=== PATIENT | female | born 1970 | race African-American/Black ===

== ENCOUNTER 2020-01-31 08:04 | Emergency (ER) | payer BC, SELFPAY ==
[2020-01-31 08:23] VITALS: BP 129/85; PULSE 80; RESP 16; TEMP 37.3; O2SAT 99
--- NOTE | 2020-01-31 08:33 | ED.GENADULT ---
HPI - General Adult General Chief complaint: Eye Problems Stated complaint: bilateral eye swollen Source: patient Mode of arrival: ambulatory Limitations: no limitations History of Present Illness HPI narrative: Patient presents for evaluation and treatment of irritation surrounding both eyes with associated pruritus since yesterday. She indicates on Thursday of this week she had her eyebrows tented. She has had this procedure done in the past without any adverse response. She states she woke from sleep this morning with swelling around both eyes. She denies any visual disturbance. She tried taking Benadryl which seemed to help with the swelling and itching. She is not diabetic. She denies any fever, chills, nausea, vomiting. No additional complaints or concerns. Related Data Home Medications Medication Instructions Recorded Confirmed albuterol sulfate 1 inh INHALATION QID PRN 01/31/20 01/31/20 cyanocobalamin (vitamin B-12) 1,000 mcg PO DAILY 01/31/20 01/31/20 [Vitamin B-12] levothyroxine [Synthroid] 137 mcg PO DAILY 01/31/20 01/31/20 methylphenidate HCl 5 mg PO DAILY 01/31/20 01/31/20 mometasone [Asmanex HFA] 1 puff INHALATION HS 01/31/20 01/31/20 montelukast [Singulair] 10 mg PO DAILY 01/31/20 01/31/20 sertraline [Zoloft] 150 mg PO DAILY 01/31/20 01/31/20 Allergies Allergy/AdvReac Type Severity Reaction Status Date / Time Penicillins Allergy Rash Verified 01/31/20 08:27 Review of Systems Review of Systems: Narrative: CONSTITUTIONAL: Denies fever, chills, or sweats. EYES: Denies visual changes, redness, or discharge. Reports irritation around both eyes ENT: Denies rhinorrhea, congestion, sore throat, or otalgia. CARDIOVASCULAR: Denies chest pain, palpitations. RESPIRATORY: Denies cough or dyspnea. GASTROINTESTINAL: Denies abdominal pain, nausea, vomiting, or diarrhea. GENITOURINARY: Denies dysuria or hematuria. SKIN: Denies rash. Reports pruritus and swelling around both eyes MUSCULOSKELETAL: Denies back pain, joint pain, or myalgia. NEUROLOGIC: Denies headache, numbness, dizziness, or weakness. PSYCHIATRIC: Denies anxiety or depression. [facility] Past Medical History Medical History (Updated 01/31/20 @ 08:39 by Bonifacio Lo [facility], ) Asthma Cholecystectomy planned Depression Environmental allergies Hypothyroidism Lipoma Obesity Surgical History Surgical History History of hysterectomy History of tubal ligation Family History Family History Father Cancer Mother End stage renal disease Social History Social History Smoking status: Never smoker Alcohol intake: never Substance use: never Living arrangements: with family Gender identity (if verbalized by the patient): Female Sexual Orientation (if Verbalized by the Patient): Straight or Heterosexual Exam Narrative: Exam Narrative: GENERAL: Well-appearing, well-nourished, and in no acute distress. HEAD: Normocephalic, atraumatic. EYES: PERRLA and EOMI. ENT: Nares clear, no rhinorrhea or epistaxis. Mucous membranes moist. Oropharynx without tonsillar hypertrophy exudate or other lesions. Bilateral TMs pearly acosta nonbulging NECK: Supple. No adenopathy or masses. No carotid bruits or JVD CHEST: Clear to auscultation. No respiratory distress. No wheezes rales or rhonchi HEART: Regular rate and rhythm. No murmur heard. Normal peripheral pulses. ABDOMEN: Soft, nontender, nondistended, normal active bowel sounds. EXTREMITIES: Normal range of motion. No edema. SKIN: Warm, dry, no rash. Trace swelling noted to bilateral upper eyelids NEURO: No focal deficits. Alert and oriented x3. PSYCH: Normal mood and affect. Course Course Emergency Course: This is a 49-year-old female that presents with 1 day history of pruritus and irritation surrounding both eye
== END 2020-01-31 08:47 | disposition home or self-care (01) ==
PROVIDERS: Emergency Provider Nurse Practitioner; PCP Nurse Practitioner Family
DX: L29.9 Pruritus, unspecified (principal); H02.846 Edema of left eye, unspecified eyelid; H02.843 Edema of right eye, unspecified eyelid; T78.40XA Allergy, unspecified, initial encounter; J45.909 Unspecified asthma, uncomplicated; F32.9 Major depressive disorder, single episode, unspecified; E03.9 Hypothyroidism, unspecified; E66.9 Obesity, unspecified; Z68.42 Body mass index [BMI] 45.0-49.9, adult
CPT/HCPCS: 99203; G0463

== ENCOUNTER 2020-10-31 15:12 | Outpatient (RCR) | payer OTHER, MEDICAID, SELFPAY ==
--- NOTE | 2020-10-31 16:46 | PTOPEVAL ---
PHYSICAL THERAPY EVALUATION AND PLAN OF CARE Thank you for referring Kelli Spencer to [facility].? The patient is scheduled to be seen for therapy? 1x/week for 4-6 weeks. Please review, sign, date and return this plan of care WILEY. I agree with and certify that the following plan of care is medically necessary. Referring Physician Date Referring Provider: Fracisco Avila Evaluation Diagnosis left knee pain Onset June 2020 Subjective Information reports left knee pain; states Query Text:As Reported By Patient/ that it feels like her left Family knee cap is moving out of place and like it gets stuck. Sometimes the knee gives out. States that sometimes when she stands up from sitting a certain way she stands up and she has to unlock the knee. Self Report Pain Assessment Left Knee(s) Reported Pain Level 2 Pain Frequency Acute,Intermittent Other Pain Description popping, locking Pain Score Pain Score 2: Self Report Interventions Used Interventions Used By Clinicians Exercise Lower Extremity Range of Motion Knee Range of Motion Left Reason Not Measured WNL/Left Lower Extremity Muscle Strength Testing Hip Strength Left Hip Flexion Strength 4+ Good + Hip Extension Strength 3+ Fair + Hip Abduction Strength 3+ Fair + Knee Strength Left Knee Flexion Strength 3+ Fair + Knee Extension Strength 4 Good Muscle Length Testing Muscle Length Testing Piriformis w/Hip Flexion >90 Degrees (L) Mild Tightness,(L) Severe Tightness Left Hamstring Length -40 Query Text:(90 - 90 Position) Right Hamstring Length -40 Query Text:(90 - 90 Position) Right Prone Knee Flexor Muscle Length ( 95 degrees) Left Prone Knee Flexor Muscle Length ( 80 degrees) Palpation Assessment Palpation Palpation significant tenderness and tightness noted to left quadriceps - trigger points noted. Special Tests-Lower Extremity Knee Special Tests Miriam's Negative Left Anterior Drawer Negative Left Valgus Stress Test Knee at 0 Degrees Negative Left Varus Stress Test Knee at 0 Degrees Negative Left Laury's Negative Left General Exercise General Exercises Side Left Exercise Location LE Exercise Type Active,Stretching Exercise Description HEP: Query Text:Record Sets, Reps,
--- NOTE | 2020-11-14 12:51 | PCPTNOTE ---
Patient did not show up for scheduled appointment this date.
--- NOTE | 2020-11-21 08:10 | PCPTNOTE ---
Patient did not show up for scheduled appointment this date.
--- NOTE | 2020-11-28 09:11 | PCPTNOTE ---
PHYSICAL THERAPY DISCHARGE NOTE Patient:Kelli Spencer Date of :1970 Patient has not returned for any further treatments since 10/31/2020, therefore will be discharged at this time. Patient?s initial visit was on 10/31/2020 and had a total of 1 [facility]. Please review, sign, date and return this discharge summary WILEY. I have been updated about the patient's current status and I agree with discharge from the above service at this time. Referring Physician Date
--- NOTE | 2020-11-28 11:44 | PCPTNOTE ---
Patient did not show up for scheduled appointment this date; called patient who answered phone who stated that at this time she is just unable to attend therapy due to personal issues understands she will need a new order for MD to return to therapy.
== END 2020-11-28 16:39 | disposition home or self-care (01) ==
LOC: ANHPT 15:12
PROVIDERS: PCP Nurse Practitioner Family
DX: M25.562 Pain in left knee (principal); M17.12 Unilateral primary osteoarthritis, left knee
CPT/HCPCS: 97110; 97161

== ENCOUNTER 2021-05-26 08:06 | Emergency (ER) | payer OTHER, MEDICAID, SELFPAY ==
[2021-05-26 08:15] VITALS: BP 148/87; PULSE 89; RESP 16; TEMP 36.7; O2SAT 99
[2021-05-26] MEDS: BALANCED SALT SOLN OPHTH IRRIG 30 ML BTL LEFT EYE (08:20)
[2021-05-26] MEDS: FLUORESCEIN SOD 1 MG/STRIP EACH EYE (08:20)
[2021-05-26] MEDS: TETRACAINE HCL 0.5% OPHTH SOLN 4 ML BTL 1 DROP EACH EYE (08:20)
--- NOTE | 2021-05-26 08:43 | ED.GENADULT ---
HPI - General Adult General Chief complaint: Eye Problems Stated complaint: right eye pain Source: patient Mode of arrival: ambulatory Limitations: no limitations History of Present Illness HPI narrative: Patient presents for evaluation of left eye irritation for the last 2 days. The day prior to his symptom onset she had some artificial lashes placed. She initially felt like there was a hair in (her) eye . She reports tearing, redness and blurred vision. She denies diplopia, halos, black spots and other visual disturbance. She removed the left lashes but kept the right lashes on. She does wear glasses. No contact lens use. She tried two over the counter medications without considerable improvement in her symptoms thereafter. No additional complaints or concerns. Related Data Home Medications Medication Instructions Recorded Confirmed albuterol sulfate 1 inh INHALATION QID PRN 01/31/20 05/26/21 cyanocobalamin (vitamin B-12) 1,000 mcg PO DAILY 01/31/20 05/26/21 [Vitamin B-12] levothyroxine [Synthroid] 137 mcg PO DAILY 01/31/20 05/26/21 methylphenidate HCl 5 mg PO DAILY 01/31/20 05/26/21 mometasone [Asmanex HFA] 1 puff INHALATION HS 01/31/20 05/26/21 montelukast [Singulair] 10 mg PO DAILY 01/31/20 05/26/21 sertraline [Zoloft] 150 mg PO DAILY 01/31/20 05/26/21 Allergies Allergy/AdvReac Type Severity Reaction Status Date / Time Penicillins Allergy Rash Verified 05/26/21 08:21 Review of Systems Review of Systems: CONSTITUTIONAL: Denies fever, chills, or sweats. EYES: Reports left eye irritation, redness, tearing and blurred vision. Denies diplopia, halos, black spots ENT: Denies rhinorrhea, congestion, sore throat, or otalgia. CARDIOVASCULAR: Denies chest pain, palpitations, or edema. RESPIRATORY: Denies cough or dyspnea. GASTROINTESTINAL: Denies abdominal pain, nausea, vomiting, or diarrhea. GENITOURINARY: Denies dysuria or hematuria. SKIN: Denies rash or itching. MUSCULOSKELETAL: Denies back pain, joint pain, or myalgia. NEUROLOGIC: Denies headache, numbness, dizziness, or weakness. PSYCHIATRIC: Denies anxiety or depression. PMFSH Past Medical History Medical History Asthma Cholecystectomy planned Depression Environmental allergies Hypothyroidism Lipoma Obesity Surgical History Surgical History History of hysterectomy History of tubal ligation Family History Family History Father Cancer Mother End stage renal disease Social History Social History Smoking status: Never smoker Alcohol intake: never Substance use: never Gender identity (if verbalized by the patient): Female Sexual Orientation (if Verbalized by the Patient): Straight or Heterosexual Exam Narrative: GENERAL: Well-appearing, well-nourished, and in no acute distress. HEAD: Normocephalic, atraumatic. EYES: PERRLA and EOMI. left conjunctival injection with associated tearing. There is no dye uptake noted with fluorescein stain and wood's lamp evaluation ENT: Nares clear, no rhinorrhea or epistaxis. Mucous membranes moist. Oropharynx without tonsillar hypertrophy exudate or other lesions. Bilateral TMs pearly acosta nonbulging NECK: Supple. No adenopathy or masses. No carotid bruits or JVD CHEST: Clear to auscultation. No respiratory distress. No wheezes rales or rhonchi HEART: Regular rate and rhythm. No murmur heard. Normal peripheral pulses. ABDOMEN: Soft, nontender, nondistended, normal active bowel sounds. EXTREMITIES: Normal range of motion. No edema. SKIN: Warm, dry, no rash. NEURO: No focal deficits. Alert and oriented x3. PSYCH: Normal mood and affect. Course Course Emergency Course: This is a 50-year-old female who presented with complaints of left eye irritation. Initia
== END 2021-05-26 08:26 | disposition home or self-care (01) ==
PROVIDERS: Emergency Provider Nurse Practitioner
DX: H10.32 Unspecified acute conjunctivitis, left eye (principal); J45.909 Unspecified asthma, uncomplicated; E03.9 Hypothyroidism, unspecified; E66.9 Obesity, unspecified; Z68.42 Body mass index [BMI] 45.0-49.9, adult; F32.A Depression, unspecified
CPT/HCPCS: 99213; A9270; G0463

== ENCOUNTER 2022-10-04 15:12 | Emergency (ER) | payer OTHER, MEDICAID, SELFPAY ==
--- NOTE | 2022-10-04 15:20 | ED.EAR ---
HPI - Ear Problem General Chief complaint: Upper Respiratory Infection Stated complaint: bilateral ear pain,sorethroat,dizziness Time Seen by Provider: 10/04/22 15:20 Source: patient, RN notes reviewed and old records reviewed Mode of arrival: ambulatory Limitations: no limitations History of Present Illness HPI Narrative: 52-year-old female presents to [facility] with complaints of bilateral ear pain, sore intermittent dizziness. Her symptoms started 10 days ago. Has tried [id number] products. Related Data Home Medications Medication Instructions Recorded Confirmed albuterol sulfate 90 mcg/actuation 1 inh inhalation QID PRN Wheezing 01/31/20 10/04/22 aerosol inhaler cyanocobalamin (vitamin B-12) 1,000 mcg PO DAILY 01/31/20 10/04/22 1,000 mcg tablet (Vitamin B-12) amlodipine 10 mg tablet 10 mg PO DAILY 10/04/22 10/04/22 bupropion HCl 300 mg 24 hr tablet, 300 mg PO DAILY 10/04/22 10/04/22 extended release duloxetine 30 mg capsule,delayed 30 mg PO DAILY 10/04/22 10/04/22 release methylphenidate HCl 36 mg 36 mg PO DAILY 10/04/22 10/04/22 tablet,extended release 24 hr Allergies Allergy/AdvReac Type Severity Reaction Status Date / Time Penicillins Allergy Rash Verified 10/04/22 15:36 Review of Systems Review of Systems: All systems reviewed & are unremarkable except as noted in HPI and below Constitutional: Constitutional: Reports no additional constitutional complaints Eyes: Eyes: Reports no additional eye complaints ENT: Reports as per HPI, Reports vertigo, Reports dizziness, Reports otalgia and Reports sore throat Cardiovascular: Cardiovascular: Reports no additional cardiovascular complaints, Denies chest pain and Denies dyspnea Respiratory: Respiratory: Reports no additional respiratory complaints, Denies chest congestion, Denies cough and Denies dyspnea Gastrointestinal: Gastrointestinal: Reports no additional gastrointestinal complaints, Denies abdominal pain, Denies nausea and Denies vomiting Musculoskeletal: Musculoskeletal: Reports no additional musculoskeletal complaints Integumentary/Breasts: Skin/Breast: Reports system reviewed and no additional complaints, except as docu Neurologic: Reports system reviewed and no additional complaints, except as documented Psychiatric: Psychiatric: Reports no additional psychiatric complaints Allergic/Immunologic: Allergic/Immunologic: Reports no additional allergic/immunologic complaints PMFSH Past Medical History Medical History Asthma Cholecystectomy planned Depression Environmental allergies Hypothyroidism Lipoma Obesity Surgical History Surgical History History of hysterectomy History of tubal ligation Family History Family History Father Cancer Mother End stage renal disease Social History Social History Smoking status: Never smoker Alcohol intake: never Substance use: never Living arrangements: with family Gender identity (if verbalized by the patient): Female Sexual Orientation (if Verbalized by the Patient): Straight or Heterosexual Comments At the time of my signature, I reviewed and agree with the nursing past medical, surgical, social, and family history. There is no relevant family history pertinent to the patient complaint. Exam Const: General: cooperative, healthy appearing, comfortable, no acute distress, well developed, alert and well nourished Nutritional Appearance: well nourished Orientation/consciousness: patient oriented x3 Limitations: no limitations HENMT: Head: normal to inspection Ears: hearing grossly normal bilaterally, external ears normal, TM normal on the left, EAC's normal, mastoids normal, no periauricular adenopathy and TM abnormal bulging on the right, er
[2022-10-04 15:26] VITALS: BP 147/89; PULSE 89; RESP 18; TEMP 37.1; O2SAT 99
== END 2022-10-04 15:39 | disposition home or self-care (01) ==
PROVIDERS: Emergency Provider Nurse Practitioner; PCP Nurse Practitioner Family
DX: H66.91 Otitis media, unspecified, right ear (principal); H65.03 Acute serous otitis media, bilateral; J45.909 Unspecified asthma, uncomplicated; E03.9 Hypothyroidism, unspecified; E66.9 Obesity, unspecified; Z68.42 Body mass index [BMI] 45.0-49.9, adult; F32.A Depression, unspecified
CPT/HCPCS: 99213; G0463

== ENCOUNTER 2023-05-08 08:21 | Emergency (ER) | payer OTHER, MEDICAID, SELFPAY ==
[2023-05-08 08:35] VITALS: BP 125/84; PULSE 83; RESP 18; TEMP 36.4; O2SAT 99
--- NOTE | 2023-05-08 08:38 | ED.URI ---
HPI - URI/Sore Throat General Chief Complaint: Upper Respiratory Infection Stated Complaint: Cough,Congestion,Headache Time Seen by Provider: 05/08/23 08:38 Source: patient Mode of arrival: ambulatory Limitations: no limitations History of Present Illness HPI Narrative: Patient is a 52-year-old female who presents with congestion, sinus pressure, headache, cough for 4 days. Patient has tried [id number] cold and flu medication with no relief. Denies any fever, chills, nausea, vomiting, diarrhea, sore throat. History of asthma Related Data Home Medications Medication Instructions Recorded Confirmed cyanocobalamin (vitamin B-12) 1,000 mcg PO DAILY 01/31/20 05/08/23 1,000 mcg tablet (Vitamin B-12) amlodipine 10 mg tablet 10 mg PO DAILY 10/04/22 05/08/23 bupropion HCl 300 mg 24 hr tablet, 300 mg PO DAILY 10/04/22 05/08/23 extended release duloxetine 30 mg capsule,delayed 30 mg PO DAILY 10/04/22 05/08/23 release methylphenidate HCl 36 mg 36 mg PO DAILY 10/04/22 05/08/23 tablet,extended release 24 hr albuterol sulfate 90 mcg/actuation 2 puff inhalation QID PRN 05/08/23 05/08/23 aerosol inhaler Shortness Of Breath Or Wheezing levothyroxine 150 mcg tablet 150 mcg PO DAILY 05/08/23 05/08/23 Allergies Allergy/AdvReac Type Severity Reaction Status Date / Time Penicillins AdvReac Mild Rash Verified 05/08/23 08:31 Review of Systems Review of Systems: All systems reviewed & are unremarkable except as noted in HPI and below Constitutional: Constitutional: Denies body ache(s), Denies chills, Denies fatigue, Denies fever(s), Reports headache(s), Denies malaise and Denies weakness Eyes: Eyes: Denies blurry vision, Denies itchy eyes and Denies loss of vision ENT: Denies otalgia, Denies headache(s), Reports nasal congestion, Denies sinus pain, Reports sinus pressure and Denies sore throat Cardiovascular: Cardiovascular: Denies chest pain, Denies irregular heart rhythm and Denies dyspnea Respiratory: Respiratory: Reports cough and Denies dyspnea Gastrointestinal: Gastrointestinal: Denies abdominal pain, Denies diarrhea, Denies nausea and Denies vomiting Musculoskeletal: Musculoskeletal: Denies back pain, Denies myalgias and Denies arthralgias Integumentary/Breasts: Skin/Breast: Denies pruritus and Denies rash Neurologic: Reports headache(s), Denies loss of vision and Denies weakness Psychiatric: Psychiatric: Reports no additional psychiatric complaints Endocrine: Endocrine: Denies fatigue Allergic/Immunologic: Allergic/Immunologic: Denies itchy eyes PMFSH Past Medical History Medical History Asthma Cholecystectomy planned Depression Environmental allergies Hypothyroidism Lipoma Obesity Surgical History Surgical History History of hysterectomy History of tubal ligation Family History Family History Father Cancer Mother End stage renal disease Social History Social History Smoking status: Never smoker Alcohol intake: never Substance use: never Living arrangements: with family Gender identity (if verbalized by the patient): Female Sexual Orientation (if Verbalized by the Patient): Straight or Heterosexual Comments At time of signature, agree with nursing past medical, surgical, social and family history. There is no relevant family history pertinent to the presenting complaint. Exam Const: General: cooperative, healthy appearing, comfortable, no acute distress and well nourished Nutritional Appearance: well nourished Orientation/consciousness: patient oriented x3 Limitations: no limitations HENMT: Head: normal to inspection, normocephalic and atraumatic Ears: hearing grossly normal bilaterally, external ears normal, TM's normal bilaterally, EAC's normal a
== END 2023-05-08 08:52 | disposition home or self-care (01) ==
PROVIDERS: Emergency Provider Nurse Practitioner Family; PCP Nurse Practitioner Family
DX: J32.9 Chronic sinusitis, unspecified (principal); Z20.822 Contact with and (suspected) exposure to COVID-19; J45.909 Unspecified asthma, uncomplicated; E03.9 Hypothyroidism, unspecified; E66.9 Obesity, unspecified; Z68.42 Body mass index [BMI] 45.0-49.9, adult; F32.A Depression, unspecified
CPT/HCPCS: 87081; 87426; 87804; 87880; 99213; G0463

== ENCOUNTER 2023-11-09 17:11 | Emergency (ER) | payer OTHER, SELFPAY ==
[2023-11-09 18:27] VITALS: BP 151/99; PULSE 99; RESP 18; TEMP 37; O2SAT 100
--- NOTE | 2023-11-09 18:33 | ED.URI ---
HPI - URI/Sore Throat General Chief Complaint: Upper Respiratory Infection Stated Complaint: sinus infection and headache Time Seen by Provider: 11/09/23 18:33 Source: patient Mode of arrival: ambulatory Limitations: no limitations History of Present Illness HPI Narrative: 53-year-old female presents with complaint of nasal congestion, sinus pressure, fatigue for 2 weeks. Taking an [id number] sinus medication with no relief of symptoms. Patient had bacterial sinusitis at end of September, was prescribed doxycycline but did not finish prescription. Afebrile. All systems reviewed and negative except as noted above. Related Data Home Medications Medication Instructions Recorded Confirmed amlodipine 10 mg tablet 10 mg PO DAILY 10/04/22 11/09/23 bupropion HCl 300 mg 24 hr tablet, 300 mg PO DAILY 10/04/22 11/09/23 extended release duloxetine 30 mg capsule,delayed 30 mg PO DAILY 10/04/22 11/09/23 release methylphenidate HCl 36 mg 36 mg PO DAILY 10/04/22 11/09/23 tablet,extended release 24 hr levothyroxine 150 mcg tablet 150 mcg PO DAILY 05/08/23 11/09/23 duloxetine 60 mg capsule,delayed 60 mg PO DAILY 11/09/23 11/09/23 release Allergies Allergy/AdvReac Type Severity Reaction Status Date / Time Penicillins AdvReac Mild Rash Verified 11/09/23 18:24 Review of Systems Review of Systems: CONSTITUTIONAL: Denies fever, chills, or sweats. reports fatigue. EYES: Denies visual changes, redness, or discharge. ENT: Reports rhinorrhea, congestion, sinus pressure. Denies sore throat, or otalgia. CARDIOVASCULAR: Denies chest pain, palpitations, or edema. RESPIRATORY: Denies cough or dyspnea. GASTROINTESTINAL: Denies abdominal pain, nausea, vomiting, or diarrhea. GENITOURINARY: Denies dysuria or hematuria. SKIN: Denies rash or itching. MUSCULOSKELETAL: Denies back pain, joint pain, or myalgia. NEUROLOGIC: Denies headache, numbness, or weakness. PSYCHIATRIC: Denies anxiety or depression. All other systems reviewed are negative, except as documented in HPI. [facility] Past Medical History Medical History Asthma Cholecystectomy planned Depression Environmental allergies Hypothyroidism Lipoma Obesity Surgical History Surgical History History of hysterectomy History of tubal ligation Family History Family History Father Cancer Mother End stage renal disease Social History Social History Smoking status: Never smoker Alcohol intake: never Substance use: never Living arrangements: with family Gender identity (if verbalized by the patient): Female Sexual Orientation (if Verbalized by the Patient): Straight or Heterosexual Comments At time of signature, agree with nursing past medical, surgical, social and family history. There is no relevant family history pertinent to the presenting complaint. Exam Narrative: GENERAL: This is a well-nourished, well-developed patient, in no apparent distress. HEAD: normocephalic, atraumatic. EYES: PERRL. Sclera clear/white. Vision is grossly intact. EARS: External ears normal, auditory canals clear and without drainage, TMs normal without perforation. Hearing grossly intact. NOSE: External nose normal with Moderate congestion, erythema and swelling to bilateral nares with clear nasal drainage. Bilateral maxillary sinus tenderness on exam. THROAT: Mucous membranes moist, Erythematous postnasal drainage. No significant swelling or exudates. NECK: Neck supple, non-tender without lymphadenopathy, masses or thyromegaly. CARDIOVASCULAR: Regular rate and rhythm without murmurs, gallops, or rubs. RESPIRATORY: Clear to auscultation. Breath sounds equal bilaterally. No wheezes, rales, or rhonchi. GASTROINTESTINAL: Abdomen soft, non-tender, non
== END 2023-11-09 18:40 | disposition home or self-care (01) ==
PROVIDERS: Emergency Provider Nurse Practitioner Family; PCP Nurse Practitioner Family
DX: J01.90 Acute sinusitis, unspecified (principal); J45.909 Unspecified asthma, uncomplicated; E03.9 Hypothyroidism, unspecified; E66.9 Obesity, unspecified; Z68.42 Body mass index [BMI] 45.0-49.9, adult; F32.9 Major depressive disorder, single episode, unspecified
CPT/HCPCS: 99213; G0463

== ENCOUNTER 2024-07-31 18:59 | Emergency (ER) | payer OTHER, SELFPAY ==
--- OUTSIDE RECORDS SUMMARY | 2024-07-31 19:01 | XMS_ITS | Clinical Summary ---
Author Organization [facility] [place] [address] [place] [address] Care Team Providers Care Quality Assurance Monitor Name Role Phone Unavailable Primary Care Provider Unavailabl e Social History Tobacco Use Types Packs/Day Years Used Date Smoking Tobacco: Never Assessed Comments Unknown Sex and Gender Information Value Date Recorded Sex Assigned at Not on file Legal Sex Female 12:14 AM PST Gender Identity Not on file Sexual Orientation Not on file Plan of Treatment Not on file
--- OUTSIDE RECORDS SUMMARY | 2024-07-31 19:01 | XMS_ITS | Encounter Summary ---
Author Organization [facility] Address [address] [place] [address] Care Team Providers Care Pst Supervisor Name Role Phone Unavailable Primary Care Provider Unavailabl e Prior Encounters Date Type Department Care Team Description 04/04/2019 Converted CPS Chart Documents [facility] [address] [place] [address] <No scans attached> 04/04/2019 Converted 13x Documents [facility] [address] [place] [address] <No scans attached> Plan of Treatment Not on file Procedures Procedure Name Priority Date/Time Associated Diagnosis Comments MISSED APPOINTMENT Routine 08/14/2016 2: 00 AM CDT 29 EXTRACTION, ERUPTED TOOTH OR EXPOSED ROOT (ELEVATION AND/OR FORCEPS REMOVAL) Routine 03/27/2016 2:00 AM CALL CENTER REPRESENTATIVE 29 LIMITED ORAL EVALUATION - PROBLEM FOCUSED Routine 03/27/2016 2:00 AM CALL CENTER REPRESENTATIVE ADDITIONAL X-RAY Routine 03/27/2016 2:00 AM CALL CENTER REPRESENTATIVE SINGLE X-RAY Routine 03/27/2016 2:00 AM CALL CENTER REPRESENTATIVE 16 REMOVAL OF RESIDUAL TOOTH ROOTS (CUTTING PROCEDURE) Routine 01/31/2016 2:00 AM CALL CENTER REPRESENTATIVE 1 REMOVAL OF RESIDUAL TOOTH ROOTS (CUTTING PROCEDURE) Routine 01/31/2016 2:00 AM CALL CENTER REPRESENTATIVE COMPREHENSIVE ORAL EVALUATION - NEW OR ESTABLISHED PATIENT Routine 01/31/2016 2:00 AM CALL CENTER REPRESENTATIVE ORAL HYGIENE INSTRUCTIONS Routine 2015 2:00 AM CALL CENTER REPRESENTATIVE TOPICAL APPLICATION OF FLUORIDE VARNISH Routine 01/31/2016 2:00 AM CALL CENTER REPRESENTATIVE PROPHYLAXIS - ADULT Routine 01/31/2016 2 :00 AM CALL CENTER REPRESENTATIVE PANORAMIC RADIOGRAPHIC IMAGE Routine 01/31/2016 2:00 AM CALL CENTER REPRESENTATIVE INTRAORAL - COMPREHENSIVE SERIES OF RADIOGRAPHIC IMAGES Routine 01/31/2016 2:00 AM CALL CENTER REPRESENTATIVE INTRAORAL PHOTO Routine 01/31/2016 2:00 AM CALL CENTER REPRESENTATIVE INTRAORAL PHOTO Routine 01/31/2016 2:00 AM CALL CENTER REPRESENTATIVE INTRAORAL PHOTO Routine 01/31/2016 2:00 AM CALL CENTER REPRESENTATIVE INTRAORAL PHOTO Routine 01/31/2016 2:00 AM CALL CENTER REPRESENTATIVE Visit Diagnoses Not on file
--- OUTSIDE RECORDS SUMMARY | 2024-07-31 19:01 | XMS_ITS | Encounter Summary ---
Author Organization [facility] Health Address [address] [place] [address] Care Team Providers Care Surfacing Technician Name Role Phone Ginna Auguste MD Primary Care Provider [phone] Dana Urena RN Unavailable [phone] Arpita Benjamin RN Unavailable [phone] Carlos Gutierrez MD Unavailable [phone] Chelsie Arellano MD Primary Care Provider [phone] Encounter Details Date Type Department Care Team (Late st Contact Info) Description 01/29/2012 [facility] Outpatient Visit EXTERNAL NON-[facility] DEPT Social History Tobacco Use Types Packs/Day Years Used Date Smoking Tobacco: Never Alcohol Use Standard Drinks/Week Comments Yes 0 (1 standard drink = 0.6 oz pur e alcohol) socially Comments No Sex and Gender Information Value Date Recorded Sex Assigned at Not on file 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 Gender Identity Not on file Sexual Orientation Not on file documented as of this encounter Plan of Treatment Not on file documented as of this encounter Visit Diagnoses Not on filedocumented in this encounter Care Teams Surfacing Technician Relationship Specialty Start Date End Date Ginna Auguste MD PCP - General Family Medicine 09/05/11 03/21/19 Chelsie Arellano MD [facility] [facility] [address] [place] [address] PCP - General 03/22/19 Dana Urena RN Rock CutterStorm Door Maker Medicine 06/24/12 10/20/12 Arpita Benjamin RN [address] [place] [address] Rock Cutter 10/21/12 04/25/13 Carlos Gutierrez MD [address] [place] [address] Orthopedic Surgery 03/20/15 documented as of this encounter
--- OUTSIDE RECORDS SUMMARY | 2024-07-31 19:01 | XMS_ITS | Encounter Summary ---
Author Organization [facility] Health Address [address] [place] [address] Care Team Providers Care Stock Handler Floorperson Name Role Phone Ginna Auguste MD Primary Care Provider [phone] Dana Urena RN Unavailable [phone] Arpita Benjamin RN Unavailable [phone] Carlos Gutierrez MD Unavailable [phone] Chelsie Arellano MD Primary Care Provider [phone] Encounter Details Date Type Department Care Team (Late st Contact Info) Description 10/28/2011 [facility] Outpatient Visit EXTERNAL [facility] DEPT Social History Tobacco Use Types Packs/Day Years Used Date Smoking Tobacco: Never Alcohol Use Standard Drinks/Week Comments Yes 0 (1 standard drink = 0.6 oz pur e alcohol) socially Comments No Sex and Gender Information Value Date Recorded Sex Assigned at Not on file 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 Gender Identity Not on file Sexual Orientation Not on file documented as of this encounter Plan of Treatment Not on file documented as of this encounter Visit Diagnoses Not on filedocumented in this encounter Care Teams Stock Handler Floorperson Relationship Specialty Start Date End Date Ginna Auguste MD PCP - General Family Medicine 09/05/11 03/21/19 Chelsie Arellano MD [facility] [facility] [address] [place] [address] PCP - General 03/22/19 Dana Urena RN Tank Car MechanicQuality Assurance Practice Manager Medicine 06/24/12 10/20/12 Arpita Benjamin RN [address] [place] [address] Tank Car Mechanic 10/21/12 04/25/13 Carlos Gutierrez MD [address] [place] [address] Orthopedic Surgery 03/20/15 documented as of this encounter
--- OUTSIDE RECORDS SUMMARY | 2024-07-31 19:01 | XMS_ITS | Encounter Summary ---
Author Organization [facility] Health Address [address] [place] [address] Care Team Providers Care Lime Kiln Worker Helper Name Role Phone Ginna Auguste MD Primary Care Provider [phone] Arpita Benjamin RN Unavailable [phone] Carlos Gutierrez MD Unavailable [phone] Chelsie Arellano MD Primary Care Provider [phone] Encounter Details Date Type Department Care Team (Late st Contact Info) Description 02/18/2013 [facility] Outpatient Visit EXTERNAL NON-[facility] DEPT Ginna Auguste MD [address] [facility] [address] [place], [place] [id number] Social History Tobacco Use Types Packs/Day Years Used Date Smoking Tobacco: Never Smokeless Tobacco: Never Alcohol Use Standard Drinks/Week Comments Yes 0 (1 standard drink = 0.6 oz pur e alcohol) socially Comments No Sex and Gender Information Value Date Recorded Sex Assigned at Not on file 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 Author Blood Pressure < 130/80 Blood Pressure 142/88(2023 10:52 AM CDT) No Dana Urena RN Exercise 3X per week (30 min per time) Exercise No Dana Urena RN Plan meals Lifestyle No Dana Urena RN Weight < 200 lb (90.719 kg) Weight 142.4 kg (314 lb)( 4 12:43 PM CDT) Dana Ramos RN documented as of this encounter Visit Diagnoses Not on filedocumented in this encounter Care Teams Lime Kiln Worker Helper Relationship Specialty Start Date End Date Ginna Auguste MD PCP - General Family Medicine 09/05/11 03/21/19 Chelsie Arellano MD [address] [place] [address] PCP - General 03/22/19 Arpita Benjamin RN [address] [place] [address] Quality Control Head 10/21/12 04/25/13 Carlos Gutierrez MD [address] [place] [address] Orthopedic Surgery 03/20/15 documented as of this encounter
--- NOTE | 2024-07-31 19:02 | ED.EYEPROB ---
HPI - Eye Problem General Chief complaint: Eye Problems Stated complaint: irritation in both eyes Time Seen by Provider: 07/31/24 19:01 Source: patient Mode of arrival: ambulatory Limitations: no limitations History of Present Illness HPI Narrative: Kelli is a 53-year-old female patient presenting to the clinic today with complaints of bilateral eye irritation times 1-2 days. She reports she had fake eyelashes removed from her eyes and took them off today. Over the past 1-2 days she has had itchy burning eyes with yellow discharge. No URI symptoms. Related Data Home Medications Medication Instructions Recorded Confirmed Last Taken Type amlodipine 10 mg tablet 10 mg PO DAILY 10/04/22 11/09/23 Unknown History bupropion HCl 300 mg 24 hr tablet, 300 mg PO DAILY 10/04/22 11/09/23 Unknown History extended release duloxetine 30 mg capsule,delayed 30 mg PO DAILY 10/04/22 11/09/23 Unknown History release methylphenidate HCl 36 mg 36 mg PO DAILY 10/04/22 11/09/23 Unknown History tablet,extended release 24 hr levothyroxine 150 mcg tablet 150 mcg PO DAILY 05/08/23 11/09/23 Unknown History duloxetine 60 mg capsule,delayed 60 mg PO DAILY 11/09/23 11/09/23 Unknown History release Allergies Allergy/AdvReac Type Severity Reaction Status Date / Time Penicillins Allergy Mild Rash Verified 07/31/24 19:03 Review of Systems Review of Systems: Pertinent positives per HPI. Patient denies any fever, chills, rash, headache, visual changes, dizziness, cough, runny nose, sore throat, shortness of breath, chest pain, palpitations, nausea, vomiting, diarrhea, constipation, abdominal pain, or any urinary issues. [facility] Past Medical History Medical History Cholecystectomy planned Lipoma Hypothyroidism Obesity Depression Environmental allergies Asthma Surgical History Surgical History History of hysterectomy History of tubal ligation Family History Family History Father Cancer Mother End stage renal disease Social History Social History Smoking status: Never smoker Alcohol intake: never Substance use: never Living arrangements: with family Gender identity (if verbalized by the patient): Female Sexual Orientation (if Verbalized by the Patient): Straight or Heterosexual Comments At the time of my signature, I reviewed and agree with the nursing past medical, surgical, social, and family history. There is no relevant family history pertinent to the patient complaint. Exam Narrative: General: Well-developed, well nourished, in no apparent distress Head: Normocephalic, atraumatic Eyes: Pupils equally round and reactive to light bilaterally, EOM intact, bilateral sclera and conjunctive injected, yellow mucopurulent, lids normal Ears: TMs intact and clear, ear canals clear, no drainage, grossly hearing normal. Nose: Nares patent, no discharge, no inflammation, no sinus tenderness. Mouth: Oropharynx without lesions or masses, good dentition, MMM. Neck: Supple, trachea midline, no enlargement of anterior or posterior cervical nodes, no thyroid masses or goiter palpable. Cardio: Regular rate and rhythm, s1 and s2 normal, no murmur appreciated. Resp: Clear to auscultation bilaterally anteriorly and posteriorly, no rhonchi, rales, wheezing or rubs Course Course Emergency Course: Portions of this record may have been created with voice recognition software. Level of Care: Express Care Visit Vital Signs Vital signs: Vital signs reviewed MDM - Eye Problem MDM Narrative Medical decision making narrative: At the time of visit patient is resting comfortably on the exam table. Patient appears to be nontoxic. Plan: I suspect patient has acute bacterial conjunctivitis. Prescription for TobraDex dex was sent to the pharmacy. Supportive measures were discussed with the patient and they voiced understanding discharge instructions and agrees to treatment plan. Return precautions reviewed Differential Diagnosis Differential diagnosis: Likely corneal abrasion, conjunctivitis, acute iritis, hyphema, periorbital cellulitis, subconjunctival hemorrhage, glaucoma, corneal ulcer and ruptured globe Discharge Plan Discharge Clinical Impression: Bilateral conjunctivitis Qualifiers: Conjunctivitis type: acute Acute conjunctivitis type: bacterial Qualified Code(s): H10.33 - Unspecified acute conjunctivitis, bilateral Patient Disposition: Home Condition: Stable Instructions: Antibiotic Form, Conjunctivitis (ED) Additional Instructions: Conjunctivitis is considered contagious for 24 hours while on the antibiotic. Practice good hand washing techniques Avoid touching eyes Instill eyedrops as prescribed May use warm moist washcloth to help remove eye discharge If eyes are matted shut-do not pry eyes open-use a warm moist cloth to loosen matting and wipe matter away from eye May take Tylenol/Motrin as needed for pain or fever May take Benadryl as needed for itching Follow-up with your PCP in 3-5 days if symptoms persist or sooner if they worsen Go to the emergency room if you develop any fever that is not controlled by Tylenol or Motrin, loss of vision, eye pain, increase eye swelling,visual changes, headache, confusion, lethargy, weakness, chest pain, or shortness of breath. Patient Language: Lao Prescriptions: New tobramycin-dexamethasone 0.3-0.1 % drops,suspension 1 drp EACH EYE QID 7 Days Qty: 10 0RF No Action amlodipine 10 mg tablet 10 mg PO DAILY methylphenidate HCl 36 mg tablet extended release 24hr 36 mg PO DAILY bupropion HCl 300 mg tablet extended release 24 hr 300 mg PO DAILY duloxetine 30 mg capsule,delayed release(DR/EC) 30 mg PO DAILY duloxetine 60 mg capsule,delayed release(DR/EC) 60 mg PO DAILY prednisone 20 mg tablet 40 mg PO DAILY 5 Days Qty: 10 0RF fluticasone propionate [Flonase Allergy Relief] 50 mcg/actuation spray,suspension 1 spray intranasal BID Qty: 16 0RF Rx Instructions: administer into each nostril loratadine [Claritin] 10 mg tablet 10 mg PO DAILY Qty: 30 0RF levothyroxine 150 mcg tablet 150 mcg PO DAILY Follow-up/Referrals: BROWN,RANDA KANG [Primary Care Provider] - Time of Disposition: 19:16 Quality NIHSS Nursing Documentation ED NIHSS nursing documentation: reviewed/agree
--- OUTSIDE RECORDS SUMMARY | 2024-07-31 19:02 | XMS_ITS | Clinical Summary ---
Author Organization [facility] [address] [facility] [address] Address [address] [place] [address] Care Team Providers Care Manager Of Community Relations Name Role Phone Ginna Auguste MD Primary Care Provider [phone] Allergies Active Allergy Reactions Criticality Noted Date Comments Penicillins Itching Low 09/11/2016 Medications sertraline (ZOLOFT) 100 mg tablet Take 100 mg by mouth daily. Active levothyroxine 25 mcg tablet Take 25 mcg by mouth daily water sander. Active valACYclovir (VALTREX) 500 mg tablet Take 500 mg by mouth 2 times daily. Active cholecalciferol (DELTA-D, VITAMIN D3) 400 unit Tablet Take 400 Units by mouth every 7 days. Active Active Problems No known active problems Social History Tobacco Use Types Packs/Day Years Used Date Smoking Tobacco: Never Alcohol Use Standard Drinks/Week Comments No 0 (1 standard drink = 0.6 oz pur e alcohol) Comments No Sex and Gender Information Value Date Recorded Sex Assigned at Not on file Legal Sex Female 10:02 AM CDT Gender Identity Not on file Sexual Orientation Not on file Last Filed Vital Signs Vital Sign Reading Time Taken Comments Blood Pressure 138/88 09/11/2016 10:09 AM CDT Pulse 69 09/11/2016 10:09 AM CDT Temperature 37.2 C (98.9 F) 09/11/2016 10:09 AM CDT Respiratory Rate 16 09/11/2016 10:09 AM CDT Oxygen Saturation 97% 09/11/2016 10:09 AM CDT Inhaled Oxygen Concentration - - Weight 122.5 kg (270 lb) 09/11/2016 10:09 AM CDT Height 167.6 cm (5' 6 ) 09/11/2016 10:09 AM CDT Body Mass Index 43.58 09/11/2016 10:09 AM CDT Plan of Treatment Health Maintenance Due Date Last Done Comments DTAP/TDAP/TD VACCINES (1 - Tdap) 1988 HEPATITIS B VACCINES (1 of 3 - 19+ 3-dose series) 08/14 HPV/Cotest (21-29) 1990 CERVICAL CANCER SCREENING 08/26/1999 HPV/Cotest (30-65) 08/26/1999 PAP SMEAR 08/26/1999 BREAST CANCER SCREENING 2009 COLORECTAL SCREENING 2014 Colorectal Cancer Screening 2014 FIT-DNA Q 3 years 2014 FIT/FOBT Q 1 year 2014 Flex Sig/CT Colonography Q 5 years 2014 ZOSTER VACCINE (1 of 2) 08/26/2019 INFLUENZA VACCINE (#1) 2023 Care Teams Manager Of Community Relations Relationship Specialty Start Date End Date Ginna Auguste MD PCP - General Family Practice 09/11/16
--- OUTSIDE RECORDS SUMMARY | 2024-07-31 19:02 | XMS_ITS | Encounter Summary ---
Author Organization [facility] Address [facility] [place] [address] Care Team Providers Care Management Internship Name Role Phone Mary Lopez Primary Care Provider [phone] Encounter Details Date Type Department Care Team (Late st Contact Info) Description 11/23/2018 ADINCON Message Enc [facility] Medical Group Family & Internal Medicine [address] [place] [address] Mary Lopez FNP [facility] [place], [place] [id number] RE: FW: Medication Questions Social History Tobacco Use Types Packs/Day Years Used Date Smoking Tobacco: Never Smokeless Tobacco: Never Alcohol Use Standard Drinks/Week Comments Yes 0 (1 standard drink = 0.6 oz pur e alcohol) AUDIT-C Answer Date Recorded Frequency of Alcohol Consumption Monthly or less 07/21/2018 Average Number of Drinks Not on file 019 Frequency of Binge Drinking Not on file 10/2018 PHQ-2 Answer Date Recorded PHQ-2 Score 5 07/21/2018 Comments No Sex and Gender Information Value Date Recorded Sex Assigned at Female 04/05/2024 3:16 PM SYSTEMS TEST ANALYST Legal Sex Female 6:37 PM CDT Gender Identity Female 05/15/2021 8:35 AM SYSTEMS TEST ANALYST Sexual Orientation Straight 05/15/2021 8: 35 AM SYSTEMS TEST ANALYST documented as of this encounter Plan of Treatment Not on file documented as of this encounter Visit Diagnoses Not on filedocumented in this encounter Additional Health Concerns Infection Onset Date Last Indicated Resolved Time COVID-19 Rule Out 03/19/2020 03/19/202003/2103/21/2020 8:32 AM SYSTEMS TEST ANALYST Assessment Noted Time PHQ-9 Depression Total Score: 12 019 9:04 AM CDT documented as of this encounter Care Teams Management Internship Relationship Specialty Start Date End Date Mary Lopez FNP [facility] [place] [address] PCP - General NURSE PRACTITIONER 12/16/17 documented as of this encounter
--- OUTSIDE RECORDS SUMMARY | 2024-07-31 19:02 | XMS_ITS | Encounter Summary ---
Author Organization [facility] Address [address] [place] [address] Care Team Providers Care Filler Block Inserter Remover Name Role Phone Mary Lopez Primary Care Provider [phone] Encounter Details Date Type Department Care Team (Late st Contact Info) Description 09/10/2022 MyChart Message Enc [facility] Medical Group - [facility] [address] [place], [place] [id number] Health: [place] Provider Air Quality Message Social History Tobacco Use Types Packs/Day Years Used Date Smoking Tobacco: Never Smokeless Tobacco: Never Alcohol Use Standard Drinks/Week Comments Yes 0 (1 standard drink = 0.6 oz pur e alcohol) rare AUDIT-C Answer Date Recorded Frequency of Alcohol Consumption Monthly or less 07/21/2018 Average Number of Drinks Not on file 019 Frequency of Binge Drinking Not on file 10/2018 PHQ-2 Answer Date Recorded Patient Health Questionnaire-2 Score 2 05/05/2022 Comments No Sex and Gender Information Value Date Recorded Sex Assigned at Female 04/05/2024 3:16 PM CHEF PASSENGER VESSEL Legal Sex Female 6:37 PM CDT Gender Identity Female 05/15/2021 8:35 AM CHEF PASSENGER VESSEL Sexual Orientation Straight 05/15/2021 8: 35 AM CHEF PASSENGER VESSEL documented as of this encounter Plan of Treatment Not on file documented as of this encounter Visit Diagnoses Not on filedocumented in this encounter Additional Health Concerns Assessment Noted Time PHQ-9 Depression Total Score: 7 05/05/19 23 3:03 PM CHEF PASSENGER VESSEL documented as of this encounter Care Teams Filler Block Inserter Remover Relationship Specialty Start Date End Date Mary Lopez FNP [address] [place] [id number] PCP - General NURSE PRACTITIONER 12/16/17 documented as of this encounter
--- OUTSIDE RECORDS SUMMARY | 2024-07-31 19:02 | XMS_ITS | Patient Health Record ---
Author Organization [facility] [employer] [facility] Address [address] [place] [address] Care Team Providers Care Master Data Analyst Name Role Phone Mary Waters Primary Care Provider Unacherrie Almeida Tash Unavailable [phone] Allen Alegre Unavailable [phone] Migration, Provider Unavailable Unavailable Allergies Allergen (clinical drug ingredient) Drug/Non Drug Allergy documented on EMR Reaction Allergy Type Onset Date Status Substance with penicillin structure and antibacterial mechanism of action (substance) Penicillins Unknown Drug Allergy 06/01/2023 Active Reason For Referral No Information Medications Medication SIG (Take, Route, Frequency, Duration) Notes Start Date End Date Status Vitamin B12 *Pick strength-form from [employer] for eRX* 07/09/2023 Active buPROPion HCl ER (XL) 300 MG 1 tablet every morning Oral Once a day for 90 days Active Doxycycline Monohydrate 100 MG Oral 07/09/2023 Active amLODIPine Besylate 10 MG Oral 07/09/2023 Active DULoxetine HCl 30 MG 1 capsule Oral Once a day for 90 days Active traZODone HCl 50 MG 1 tablet at bedtime Oral Once a day for 90 days As needed Active DULoxetine HCl 60 MG 1 cap Oral Once a day for 90 days Active Immunizations Vaccine Route Administration Date Status Comme nts Pfizer [employer] Covid-19 Vac cine 2nd dose Unknown 03/06/2020 Administered Pfizer [employer] Covid-19 Vac cine 2nd dose Unknown 03/27/2020 Administered Pfizer [employer] Covid-19 Vac cine 2nd dose Unknown 12/21/2020 Administered Pfizer [employer] Covid-19 Vac cine 2nd dose Unknown 08/27/2021 Administered Social History Tobacco Use: Social History Observation Description Date Details (start date - stop date) Never Smoker NA - NA Sex Assigned At : Social History Observation Description Sex Assigned At Female Tobacco Control (Standard) Question Answer Notes Tobacco use: Nonsmoker AUDIT-C (Standard) Question Answer Notes Points 2 Interpretation Positive Did you have a drink contain ing alcohol in the past year? Yes How often did you have six o r more drinks on one occasion in the past year? Less than monthly (1 point) How many drinks did you have on a typical day when you were drinking in the past year? 1 or 2 drinks (0 point) How often did you have a dri nk containing alcohol in the past year? Monthly or less (1 point) Problems Problem Type SNOMED Code ICD Code Onset Dates Problem Status W/U Status Risk Notes Problem Major depressive disorder, recurrent, mild (F33.0) 07/09/19 Active confirmed Problem Severe recurrent major depression without psychotic features ([id number]) Major depressive disorder, recurrent severe without psychotic features (F33.2) Active confirmed Problem Generalized anxiety disorder (78224899) Generalized anxiety disorder (F41.1) 07/09/19 Active confirmed Problem Attention deficit hyperactivity disorder, combined type (74274847) Attention-deficit hyperactivity disorder, combined type (F90.2) 07/09/19 Active confirmed Problem 374776697 Other insomnia (G47.09) Active confirmed Problem [id number] Moderate recurrent major depression (F33.1) Active confirmed Problem Gastric sleeve (physical object) (322585477) H/O gastric sleeve (Z90.3) Active confirmed Vital Signs Heart Rate 73 /min 12/23/2023 Blood pressure diastolic 95 mm Hg 12/23/2023 Height-cm 167.64 cm 12/23/2023 Weight-kg 143.79 kg 12/23/2023 Height 66.00 in 12/23/2023 Blood pressure systolic 150 mm Hg 12/23/2023 Weight 317 lbs 12/23/2023 BMI 51.16 kg/m2 12/23/2023 Encounters Encounter Location Date Provider Diagnosis [facility] [employer] [facility] [address] [address] 08/27/2023 Tash Almeida Attention-deficit hyperactivity disorder, combined type F90.2 ; Major depressive disorder, recurrent severe without psychotic features F33.2 and Generalized anxiety disorder F41.1 [facility] [address] [place] [address] 09/25/2023 Allen Alegre Generalized anxiety disorder F41.1 ; Major depressive disorder, recurrent, mild F33.0 and Attention-deficit hyperactivity disorder, combined type F90.2 [facility] [address] [place] [address] 09/25/2023 Tash Almeida Generalized anxiety disorder F41.1 ; Attention-deficit hyperactivity disorder, combined type F90.2 and Major depressive disorder, recurrent severe without psychotic features F33.2 [facility] [address] [place] [address] 11/17/2023 Tash Almeida Generalized anxiety disorder F41.1 ; Moderate recurrent major depression F33.1 and Attention-deficit hyperactivity disorder, combined type F90.2 [facility] [address] [place] [address] 12/23/2023 Tash Almeida Major depressive disorder, recurrent, mild F33.0 ; Generalized anxiety disorder F41.1 and Attention-deficit hyperactivity disorder, combined type F90.2 [facility] [address] [place] [address] 12/23/2023 Allen Alegre Generalized anxiety disorder F41.1 ; Major depressive disorder, recurrent, mild F33.0 ; Attention-deficit hyperactivity disorder, combined type F90.2 ; Other insomnia G47.09 and H/O gastric sleeve Z90.3 [facility] [address] [place] [address] 01/18/2024 Tash Almeida Major depressive disorder, recurrent, mild F33.0 ; Generalized anxiety disorder F41.1 and Attention-deficit hyperactivity disorder, combined type F90.2 [facility] [address] [place] [address] 04/11/2024 Tash Almeida Attention-deficit hyperactivity disorder, combined type F90.2 ; Major depressive disorder, recurrent, mild F33.0 and Generalized anxiety disorder F41.1 [facility] [address] [place] [address] 04/25/2024 Allen Alegre Generalized anxiety disorder F41.1 ; Major depressive disorder, recurrent, mild F33.0 ; Attention-deficit hyperactivity disorder, combined type F90.2 ; Other insomnia G47.09 and H/O gastric sleeve Z90.3 [facility] [address] [place] [address] 04/25/2024 Tash Almeida Generalized anxiety disorder F41.1 ; Major depressive disorder, recurrent, mild F33.0 and Attention-deficit hyperactivity disorder, combined type F90.2 [facility] [address] [place] [address] 05/24/2024 Tash Almeida Generalized anxiety disorder F41.1 ; Major depressive disorder, recurrent, mild F33.0 ; Attention-deficit hyperactivity disorder, combined type F90.2 and Encounter for screening for depression Z13.31 [facility] [address] [place] [address] 06/24/2024 Tash Almeida Major depressive disorder, recurrent severe without psychotic features F33.2 ; Attention-deficit hyperactivity disorder, combined type F90.2 and Generalized anxiety disorder F41.1 [facility] [address] [place] [address] 07/25/2024 Tash Almeida Moderate recurrent major depression F33.1 ; Attention-deficit hyperactivity disorder, combined type F90.2 ; Generalized anxiety disorder F41.1 and Encounter for screening for depression Z13.31 [facility] [address] [place] [address] 08/01/2023 Provider Migration [facility] [address] [place] [address] 08/02/2023 Provider Migration [facility] [address] [place] [address] 10/15/2023 Tash Almeida [facility] [address] [place] [address] 11/17/2023 Allen Alegre Other insomnia G47.0 9 [facility] [address] [place] [address] 05/05/2024 Allen Alegre Attention-deficit hyperactivity disorder, combined type F90.2 [facility] [address] [place] [address] 05/06/2024 Allen Alegre Attention-deficit hyperactivity disorder, combined type F90.2 [facility] [address] [place] [address] 06/24/2024 Allen Alegre Attention-deficit hyperactivity disorder, combined type F90.2 [facility] [address] [place] [address] 01/18/2024 Allen Alegre Attention-deficit hyperactivity disorder, combined type F90.2 Assessments Encounter Date Diagnosis (ICD Code) Assessment Notes Treatment Notes Treatment Clinical Notes Section Notes 05/06/2024 Attention-defic it hyperactivity disorder, combined type (ICD-10 - F90.2) 05/05/2024 Attention-defic it hyperactivity disorder, combined type (ICD-10 - F90.2) 04/25/2024 Major depressive disorder, recurrent, mild (ICD-10 - F33.0) Grief and Bereavement - Assessment: Patient is coping with grief and has recently shown acceptance of their grief. - Plan: - Continue to monitor progress in coping with grief. - Consider EMDR therapy for grief management. - Encourage self-care and maintaining a routine. Task Prioritization and Organization - Assessment: Patient needs support in managing responsibilities and maintaining organization. - Plan: - Encourage patient to create a list of priorities and follow up on tasks. - Support patient in managing responsibilities and maintaining organization. Family and Relationship Issues - Assessment: Patient is experiencing relationship challenges and is actively supporting a family member's employment search. - Plan: - Encourage open communication between family members. - Support patient in navigating relationship challenges and setting boundaries. - Acknowledge the patient's active role in supporting a family member's employment search. Education and Employment - Assessment: Patient is currently pursuing education and considering job opportunities. - Plan: - Assist patient in exploring job opportunities and resources. - Encourage patient to continue with their education and classes. General Health and Well-being - Assessment: Patient's overall health and well-being require ongoing monitoring. - Plan: - Encourage patient to follow up with healthcare providers as needed. - Monitor overall health and well-being, addressing any concerns as they arise. 04/25/2024 Generalized anxiety disorder (ICD-10 - F41.1) Grief and Bereavement - Assessment: Patient is coping with grief and has recently shown acceptance of their grief. - Plan: - Continue to monitor progress in coping with grief. - Consider EMDR therapy for grief management. - Encourage self-care and maintaining a routine. Task Prioritization and Organization - Assessment: Patient needs support in managing responsibilities and maintaining organization. - Plan: - Encourage patient to create a list of priorities and follow up on tasks. - Support patient in managing responsibilities and maintaining organization. Family and Relationship Issues - Assessment: Patient is experiencing relationship challenges and is actively supporting a family member's employment search. - Plan: - Encourage open communication between family members. - Support patient in navigating relationship challenges and setting boundaries. - Acknowledge the patient's active role in supporting a family member's employment search. Education and Employment - Assessment: Patient is currently pursuing education and considering job opportunities. - Plan: - Assist patient in exploring job opportunities and resources. - Encourage patient to continue with their education and classes. General Health and Well-being - Assessment: Patient's overall health and well-being require ongoing monitoring. - Plan: - Encourage patient to follow up with healthcare providers as needed. - Monitor overall health and well-being, addressing any concerns as they arise. 09/25/2023 Generalized anxiety disorder (ICD-10 - F41.1) BOXED WARNINGCaution with history of drug dependence or alcoholism. Marked tolerance and psychological dependence may result from chronic abusive use. Renato psychotic episodes may occur, especially with parenteral abuse. Careful supervision required for withdrawal from abusive use to avoid severe depression. Withdrawal following chronic use may unmask symptoms of underlying disorder that may require follow-up 1. Anxiety related to mother's hospitalization - Continue seeing Tash for counseling once a month - Monitor anxiety levels and consider adjusting medications if needed 2. Depression symptoms - Continue to take bupropion 300 mg every morning and duloxetine 90 mg daily - Monitor depression symptoms and consider adjusting medications if needed 3. ADHD - Continue Concerta 72 mg daily - Assess effectiveness and side effects during follow-up visits 4. Leg shaking - Monitor frequency and severity of leg shaking - Consider discussing with primary care provider or neurologist if symptoms worsen or persist 5. Cardiac health - Follow up with mutuel machine operator for scheduled echocardiogram in November - Continue to monitor for any concerning cardiac symptoms 6. Medication management - Refill current medications for three months - Schedule follow-up appointment in three months or sooner if needed 7. Overall mental health and coping strategies - Encourage continued engagement in counseling with Tash - Assess mental health status during follow-up visits and adjust treatment plan as needed 07/25/2024 Attention-defic it hyperactivity disorder, combined type (ICD-10 - F90.2) 07/25/2024 Moderate recurrent major depression (ICD-10 - F33.1) 11/17/2023 Other insomnia (ICD-10 - G47.09) 06/24/2024 Attention-defic it hyperactivity disorder, combined type (ICD-10 - F90.2) 06/24/2024 Major depressive disorder, recurrent severe without psychotic features (ICD-10 - F33.2) 06/24/2024 Attention-defic it hyperactivity disorder, combined type (ICD-10 - F90.2) 05/24/2024 Major depressive disorder, recurrent, mild (ICD-10 - F33.0) 05/24/2024 Generalized anxiety disorder (ICD-10 - F41.1) 04/25/2024 Generalized anxiety disorder (ICD-10 - F41.1) stable 04/11/2024 Attention-defic it hyperactivity disorder, combined type (ICD-10 - F90.2) 01/18/2024 Attention-defic it hyperactivity disorder, combined type (ICD-10 - F90.2) 01/18/2024 Major depressive disorder, recurrent, mild (ICD-10 - F33.0) ADHD - Assessment: Patient reports difficulty with focus and getting distracted, affecting daily activities. Concerta (methylphenidate) was denied by insurance and removed from the patient's medication list. Patient mentions experiencing distractions in daily life, such as forgetting items while shopping. - Plan: - Investigate the reason for Concerta denial and explore alternative ADHD medications. - Encourage the patient to communicate with their psychiatrist regarding medication changes. - Monitor the patient's progress and response to any new ADHD medications. Bariatric Surgery Revision - Assessment: Patient is pursuing a full gastric bypass after losing 80 pounds with the sleeve. Patient has completed a psych evaluation, hvac refrigeration technician visits, and an upper GI test with barium. Upcoming EGD scheduled for Thursday. Patient anticipates surgery in April or May. - Plan: - Continue to support the patient through the pre-operative process, including remaining nutrition visits. - Monitor the patient's progress and provide guidance on post-operative care and lifestyle changes. Mental Health and Family Dynamics - Assessment: Patient is focusing on self-improvement, education, and supporting their children. Patient reports improved communication with Iggy and plans for family gatherings during the holidays. Patient is planning [employer] activities with extended family. - Plan: - Encourage the patient to continue open communication with family members and prioritize self-care. - Monitor the patient's mental health and provide support as needed. 01/18/2024 Generalized anxiety disorder (ICD-10 - F41.1) ADHD - Assessment: Patient reports difficulty with focus and getting distracted, affecting daily activities. Concerta (methylphenidate) was denied by insurance and removed from the patient's medication list. Patient mentions experiencing distractions in daily life, such as forgetting items while shopping. - Plan: - Investigate the reason for Concerta denial and explore alternative ADHD medications. - Encourage the patient to communicate with their psychiatrist regarding medication changes. - Monitor the patient's progress and response to any new ADHD medications. Bariatric Surgery Revision - Assessment: Patient is pursuing a full gastric bypass after losing 80 pounds with the sleeve. Patient has completed a psych evaluation, hvac refrigeration technician visits, and an upper GI test with barium. Upcoming EGD scheduled for Thursday. Patient anticipates surgery in April or May. - Plan: - Continue to support the patient through the pre-operative process, including remaining nutrition visits. - Monitor the patient's progress and provide guidance on post-operative care and lifestyle changes. Mental Health and Family Dynamics - Assessment: Patient is focusing on self-improvement, education, and supporting their children. Patient reports improved communication with Iggy and plans for family gatherings during the holidays. Patient is planning [employer] activities with extended family. - Plan: - Encourage the patient to continue open communication with family members and prioritize self-care. - Monitor the patient's mental health and provide support as needed. 12/23/2023 Generalized anxiety disorder (ICD-10 - F41.1) stable 1. Major Depressive Disorder - The patient is currently grieving the loss of her mother and is struggling with the associated emotions. She is seeing a therapist for support. Plan: - Medication management: Continue Bupropion XL 300 mg daily and Duloxetine 60 mg and 30 mg daily. Monitor for any changes in mood or depressive symptoms. - Follow-up: Schedule a follow-up appointment in 4 months to assess the patient's progress and medication effectiveness. 2. Insomnia - The patient reports difficulty with sleep and has found relief with Trazodone 50 mg at bedtime as needed. Plan: - Continue Trazodone 50 mg at bedtime as needed for sleep. Encourage the patient to take the medication earlier in the evening to avoid oversleeping. - Monitor sleep quality and adjust medication as necessary during follow-up appointments. 3. Weight Gain - The patient has gained 30 pounds since her mother's passing and is bothered by the weight gain. She has an appointment with weight management and has lost 4 pounds recently. Plan: - Encourage the patient to continue working with the weight management team, follow dietary recommendations, and attend scheduled appointments. - Monitor weight changes during follow-up appointments and assess the need for further intervention if necessary. 04/11/2024 Major depressive disorder, recurrent, mild (ICD-10 - F33.0) 12/23/2023 Major depressive disorder, recurrent, mild (ICD-10 - F33.0) Education and Career Goals - Assessment: Pursuing bachelor's in Healthcare Administration at [employer]; considering tablet/i[employer] for work. - Plan: - Encourage her educational pursuit and work-life balance. Sleep Disturbances - Assessment: Difficulty sleeping; prescribed trazodone 50mg PRN, often halving dose. - Plan: - Continue trazodone PRN. - Maintain consistent sleep schedule and hygiene. Family Stressors - Assessment: Conflicts with middle child; concerns about daughter's living/financial situation. - Plan: - Encourage open communication and boundary-setting. - Recommend family therapy/counseling . 12/23/2023 Generalized anxiety disorder (ICD-10 - F41.1) Education and Career Goals - Assessment: Pursuing bachelor's in Healthcare Administration at [employer]; considering tablet/i[employer] for work. - Plan: - Encourage her educational pursuit and work-life balance. Sleep Disturbances - Assessment: Difficulty sleeping; prescribed trazodone 50mg PRN, often halving dose. - Plan: - Continue trazodone PRN. - Maintain consistent sleep schedule and hygiene. Family Stressors - Assessment: Conflicts with middle child; concerns about daughter's living/financial situation. - Plan: - Encourage open communication and boundary-setting. - Recommend family therapy/counseling . 11/17/2023 Generalized anxiety disorder (ICD-10 - F41.1) Grief and Bereavement - Assessment: The patient is experiencing significant grief following the recent loss of her mother. She reports having dreams about her mother and waking up crying. - Plan: - Encouraged the patient to consider attending Grief Share support groups, either online or in-person. - Monitor the patient's emotional state and provide additional resources for grief support as needed. Depression - Assessment: The patient reports a history of severe depression and is currently experiencing symptoms of depression due to recent losses. She is taking on additional work to prevent slipping into further depression. - Plan: - Continue monthly therapy sessions and consider increasing the frequency if needed. - Encouraged the patient to engage in activities that promote mental well-being, such as exercise, socializing, and hobbies. Insomnia - Assessment: The patient reports difficulty sleeping and waking up crying from dreams. - Plan: - Get an earlier appt with handwriting expert - Encouraged the patient to practice good sleep hygiene, including maintaining a consistent sleep schedule and creating a relaxing bedtime routine. - Recommend reducing phone use before bed and implementing relaxation techniques. Weight Gain and Bariatric Surgery - Assessment: The patient reports weight gain and has a history of sleeve gastrectomy in 2012. She has an upcoming appointment with the bariatric surgeon on December 17 to discuss a possible revision. - Plan: - Encouraged the patient to maintain a healthy diet and exercise routine to manage weight. Financial Stress and Gambling - Assessment: The patient reports losing a significant amount of money due to gambling after her mother's passing. - Plan: - Encouraged the patient to seek support for gambling issues, such as Gamblers Anonymous or therapy focused on gambling addiction if behavior continues. - To support the patient in finding healthy coping mechanisms for stress and financial services sales representative. 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 - Plan: - Discussed strategies for maintaining a healthy work-life balance and preventing burnout. 11/17/2023 Moderate recurrent major depression (ICD-10 - F33.1) Grief and Bereavement - Assessment: The patient is experiencing significant grief following the recent loss of her mother. She reports having dreams about her mother and waking up crying. - Plan: - Encouraged the patient to consider attending Grief Share support groups, either online or in-person. - Monitor the patient's emotional state and provide additional resources for grief support as needed. Depression - Assessment: The patient reports a history of severe depression and is currently experiencing symptoms of depression due to recent losses. She is taking on additional work to prevent slipping into further depression. - Plan: - Continue monthly therapy sessions and consider increasing the frequency if needed. - Encouraged the patient to engage in activities that promote mental well-being, such as exercise, socializing, and hobbies. Insomnia - Assessment: The patient reports difficulty sleeping and waking up crying from dreams. - Plan: - Get an earlier appt with handwriting expert - Encouraged the patient to practice good sleep hygiene, including maintaining a consistent sleep schedule and creating a relaxing bedtime routine. - Recommend reducing phone use before bed and implementing relaxation techniques. Weight Gain and Bariatric Surgery - Assessment: The patient reports weight gain and has a history of sleeve gastrectomy in 2012. She has an upcoming appointment with the bariatric surgeon on December 17 to discuss a possible revision. - Plan: - Encouraged the patient to maintain a healthy diet and exercise routine to manage weight. Financial Stress and Gambling - Assessment: The patient reports losing a significant amount of money due to gambling after her mother's passing. - Plan: - Encouraged the patient to seek support for gambling issues, such as Gamblers Anonymous or therapy focused on gambling addiction if behavior continues. - To support the patient in finding healthy coping mechanisms for stress and financial services sales representative. 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 - Plan: - Discussed strategies for maintaining a healthy work-life balance and preventing burnout. 09/25/2023 Generalized anxiety disorder (ICD-10 - F41.1) Assessment copied from 06/06/21, Samantha Pereira is a 50 year old female who presented for counseling for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
--- OUTSIDE RECORDS SUMMARY | 2024-07-31 19:02 | XMS_ITS | Encounter Summary ---
Author Organization [facility] Address [facility] [place] [address] Care Team Providers Care Baggage Security Checker Name Role Phone Mary Lopez KWAKU Primary Care Provider [phone] Encounter Details Date Type Department Care Team (Late st Contact Info) Description 06/29/2019 [employer] Message Enc [facility] Mult[facility]ialty [facility] - [address], [address] [place] [id number] Misa Feliz, CREDIT UNION EXAMINER allergies Social History Tobacco Use Types Packs/Day Years [...] Sex Assigned at Female 04/05/2024 3:16 PM INDUSTRIAL MANAGEMENT TEACHER Legal Sex Female 6:37 PM CDT Gender Identity Female 05/15/2021 8:35 AM INDUSTRIAL MANAGEMENT TEACHER Sexual Orientation Straight 05/15/2021 8: 35 AM INDUSTRIAL MANAGEMENT TEACHER documented as of this encounter Plan of Treatment Not on file documented as of this encounter Visit Diagnoses Not on filedocumented in this encounter Additional Health Concerns Infection Onset Date Last Indicated Resolved Time COVID-19 Rule Out 03/19/2020 03/19/2020 03/21/2020 8:32 AM INDUSTRIAL MANAGEMENT TEACHER Assessment Noted Time PHQ-9 Depression Total Score: 12 019 9:04 AM CDT documented as of this encounter Care Teams Baggage Security Checker Relationship Specialty Start Date End Date Mary Lopez FNP [address] [place] [id number] PCP - General NURSE PRACTITIONER 12/16/17 documented as of this encounter
--- OUTSIDE RECORDS SUMMARY | 2024-07-31 19:02 | XMS_ITS | Encounter Summary ---
Author Organization [facility] Health Address [address] [facility] [place] [address] Care Team Providers Care Deposition Operator Name Role Phone Ginna Auguste MD Primary Care Provider [phone] Carlos Gutierrez MD Unavailable [phone] Chelsie Arellano MD Primary Care Provider [phone] Encounter Details Date Type Department Care Team (Late st Contact Info) Description 12/25/2015 SS Outpatient Visit EXTERNAL NON-[facility] DEPT Ginna Auguste MD [address] [facility] [address] [place], [place] [id number] Social History Tobacco Use Types Packs/Day Years Used Date Smoking Tobacco: Never Smokeless Tobacco: Never Alcohol Use Standard Drinks/Week Comments Yes 0 (1 standard drink = 0.6 oz pur e alcohol) socially Comments No Sex and Gender Information Value Date Recorded Sex Assigned at Not on file Legal Sex Female 1:47 PM CROWD CONTROLLER Gender Identity Not on file Sexual Orientation Not on file documented as of this encounter Plan of Treatment Not on file documented as of this encounter Goals Goal Patient Goal Type Associated Problems Recent Progress Patient-Stated? Author Blood Pressure < 130/80 Blood Pressure 142/88(2023 10:52 AM CDT) No Dana Urena, RN Exercise 3X per week (30 min per time) Exercise No Dana Urena, RN Plan meals Lifestyle No Dana Urena RN Weight < 200 lb (90.719 kg) Weight 142.4 kg (314 lb)( 4 12:43 PM CDT) Dana Ramos RN documented as of this encounter Visit Diagnoses Not on filedocumented in this encounter Care Teams Deposition Operator Relationship Specialty Start Date End Date Ginna Auguste MD PCP - General Family Medicine 09/05/11 03/21/19 Chelsie Arellano MD [facility] [phone] PCP - General 03/22/19 Carlos Gutierrez MD Orthopedic Surgery 03/20/15 documented as of this encounter
--- OUTSIDE RECORDS SUMMARY | 2024-07-31 19:02 | XMS_ITS | Encounter Summary ---
Author Organization [facility] Address [facility] [place] [address] Care Team Providers Care House Registry Rn Name Role Phone Mary Lopez KWAKU Primary Care Provider [phone] Encounter Details Date Type Department Care Team (Late st Contact Info) Description 03/19/2020 Prep for Procedure [facility] [place], [place] [address] Arsenio Sanchez MD [address] [id number] Social History Tobacco Use Types Packs/Day Years [...] 10/2018 PHQ-2 Answer Date Recorded PHQ-2 Score 3 01/11/2020 Comments No Sex and Gender Information Value Date Recorded Sex Assigned at Female 04/05/2024 3:16 PM HAND BINDER CUTTER Legal Sex Female 6:37 PM CDT Gender Identity Female 05/15/2021 8:35 AM HAND BINDER CUTTER Sexual Orientation Straight 05/15/2021 8: 35 AM HAND BINDER CUTTER COVID-19 Exposure Response Date Recorded In the last month, have you been in contact with someone who was confirmed or suspected to have Coronavirus / COVID-19? No / Unsure 03/22/2020 8:02 AM HAND BINDER CUTTER documented as of this encounter Plan of Treatment Not on file documented as of this encounter Results * PRE-SURGICAL/PRE-PROCEDURE CORONAVIRUS (COVID 19) (03/19/2020 10:47 AM HAND BINDER CUTTER) CORONAVIRUS SARS COV 2 PCR (RESP) NOT DETECTED NOT DETECTED 03/21/2020 8:31 AM HAND BINDER CUTTER [facility] Comment: A Not Detected (negative) test result for this test means that SARS- CoV-2 RNA was not present in the specimen above the limit of detection. A negative result does not rule out the possibility of COVID-19 and should not be used as the sole basis for treatment or patient management decisions. If COVID-19 is still suspected, based on exposure history together with other clinical findings, re-testing should be considered in consultation with public health authorities. Laboratory test results should always be considered in the context of clinical observations and epidemiological data in making a final diagnosis and patient management decisions. Please review the Fact Sheets and FDA authorized labeling available for health care providers and patients using the following websites: [email or web address]/fact-[email or web address]/home/[email or web address]-19/Patients/NAAT/ fact-sheet2 This test has been authorized by the FDA under an Emergency Use Authorization (EUA) for use by authorized laboratories. Due to the current public health emergency, [employer] is receiving a high volume of samples from a wide variety of swabs and media for COVID-19 testing. In order to serve patients during this public health crisis, samples from appropriate clinical sources are being tested. Negative test results derived from specimens received in non-commercially manufactured viral collection and transport media, or in media and sample collection kits not yet authorized by FDA for COVID-19 testing should be cautiously evaluated and the patient potentially subjected to extra precautions such as additional clinical monitoring, including collection of an additional specimen. Methodology: Nucleic Acid Amplification Test (NAAT) includes RT-PCR or TMA Additional information about COVID-19 can be found at the [employer] website: [email or web address]. Test performed at [facility] [address] [place] [address] Director: KOBY REDMOND,DO,MPH FIRST TEST YES 03/19/2020 11:22 AM HAND BINDER CUTTER [facility] EMPLOYED IN HEALTHCARE YES 03/19/2020 11:22 AM [facility] SYMPTOMATIC DEFINED BY CDC NO 03/19/2020 11:22 AM HAND BINDER CUTTER [facility] DATE OF SYMPTOM ONSET NO 03/19/2020 11:26 AM HAND BINDER CUTTER [facility] HOSPITALIZATION STATUS NO 03/19/2020 11:22 AM HAND BINDER CUTTER [facility] PATIENT IN ICU NO 03/19/2020 11:22 AM [facility] NO 03/19/2020 11:22 AM [facility] NOT 03/19/2020 11:22 AM [facility] PATIENT'S RACE BLACK OR 03/19/2020 11:22 AM [facility] ETHNICITY NONHISPANIC 03/19/2020 11:22 AM HAND BINDER CUTTER [facility] SOURCE (QST) NASOPHARYNGEAL SWAB 03/19/2020 11:22 AM [facility] NASOPHARYNGEAL SWAB / Unknown 03/19/2020 10:47 AM HAND BINDER CUTTER Arsenio Sanchez MD MICROBIOLOGY - GENERAL ORDERABLE S Final Result [facility] [address] [place] [address], [facility] [id number] [place] [phone], documented in this encounter Visit Diagnoses Diagnosis Dysphagia- Primary Dysphagia, unspecified documented in this encounter Additional Health Concerns Infection Onset Date Last Indicated Resolved Time COVID-19 Rule Out 03/19/2020 03/19/2020 03/21/2020 8:32 AM HAND BINDER CUTTER Assessment Noted Time PHQ-9 Depression Total Score: 8 01/11/20 20 11:43 AM CDT documented as of this encounter Care Teams House Registry Rn Relationship Specialty Start Date End Date Mary Lopez FNP [address] [place] [id number] PCP - General NURSE PRACTITIONER 12/16/17 documented as of this encounter
--- OUTSIDE RECORDS SUMMARY | 2024-07-31 19:02 | XMS_ITS | Clinical Summary ---
Author Organization [facility] Address [address] [place] [address] Care Team Providers Care Buckle Sorter Name Role Phone Pearl Dasilva KWAKU Primary Care Provider [phone] Allergies Active Allergy Reactions Criticality Noted Date Comments Penicillins Hives,Itching,Other (see comment),Rash,Unknown Low 09/11/2016 Reaction: Hives, Skin Rash, Medications vitamin D3, cholecalciferol, 3000 units Tab tablet Take 400 Units by mouth once a week. Active diclofenac sodium 1 % gelIndications:Ch ronic thumb pain, right Apply 2 g topically 2 (two) times daily as needed. 1 Tube 2 0 Active CPAP MACHINEIndication s:LANRE (obstructive sleep apnea) AutoCPAP [id number]. For use when sleeping. Lifetime use. [employer]Med AirSense 10 AutoSet. 1 Device 0 Active FLUTICASONE PROPIONATE 50 MCG/ACT nasal sprayIndications: Environmental and seasonal allergies SPRAY 2 SPRAYS INTO EACH NOSTRIL ONCE A DAY 16 mL 0 Active vitamin B-12 100 MCG tablet Take 0.5 tablets (50 mcg total) by mouth daily. Active montelukast 10 MG tabletIndications :Seasonal allergies,Intermi ttent asthma without complication, unspecified asthma severity (HHS/HCC) Take 1 tablet (10 mg total) by mouth nightly at bedtime. 30 tablet 11 2 Active Mometasone Furoate (ASMANEX HFA) 100 MCG/ACT AerosolIndication s:Intermittent asthma without complication, unspecified asthma severity (HHS/HCC) Inhale 2 puffs into the lungs 2 (two) times daily. 13 g 11 2 Active albuterol sulfate HFA (PROAIR HFA) 108 (90 Base) MCG/ACT inhalerIndication s:Intermittent asthma without complication, unspecified asthma severity (HHS/HCC) Inhale 2 puffs into the lungs every 4 (four) hours as needed for Wheezing or Shortness of breath. 18 g 5 2 Active fluticasone furoate-vilantero l (BREO ELLIPTA) 100-25 MCG/INH inhalerIndication s:Intermittent asthma without complication, unspecified asthma severity (HHS/HCC) Inhale 1 puff into the lungs daily. 60 each 11 2 Active buPROPion XL 300 MG 24 hr tablet Take 1 tablet (300 mg total) by mouth. 2 Active valACYclovir (VALTREX) 500 MG tabletIndications :Herpes simplex virus (HSV) infection Take 1 tablet (500 mg total) by mouth 2 (two) times daily. 60 tablet 11 2 Active methocarbamol (ROBAXIN) 750 MG TabIndications:Mu scle spasm of back TAKE 1-2 TABLETS BY MOUTH 3 TIMES DAILY NEEDED. 180 tablet 1 2 Active DULoxetine (CYMBALTA) 60 MG capsule 1 capsule (60 mg total) daily. 3 Active triamcinolone (KENALOG) 0.1 % ointmentIndicatio ns:Atopic dermatitis, unspecified type APPLY TOPICALLY 2 (TWO) TIMES DAILY TO AREAS ON ARMS AND LEGS 454 g 1 3 Active meclizine (ANTIVERT) 25 MG tablet Take 1 tablet (25 mg total) by mouth 3 (three) times daily as needed. 3 Active Albuterol-Budeson miesha (AIRSUPRA) 90-80 MCG/ACT AerosolIndication s:Mild intermittent asthma without complication (HHS/HCC) Inhale 1 Inhalation into the lungs every 4 (four) hours as needed. 10.7 g 3 4 Active DULoxetine (CYMBALTA) 30 MG capsule Take 1 capsule (30 mg total) by mouth daily. 4 Active CONCERTA 36 MG tablet TAKE 2 TABLETS BY MOUTH EVERY DAY IN THE MORNING 4 Active traZODone (DESYREL) 50 MG tablet Take 1 tablet (50 mg total) by mouth nightly at bedtime. 4 Active amLODIPine (NORVASC) 10 MG tabletIndications :Essential hypertension TAKE 1 TABLET BY MOUTH EVERY DAY 90 tablet 3 5 Active levothyroxine (SYNTHROID) 175 MCG tabletIndications :Hypothyroidism, unspecified type TAKE 1 TABLET BY MOUTH EVERY DAY IN THE MORNING 90 tablet 3 5 Active Active Problems Patient Care Coordination No te Formatting of this note migh t be different from the original. OP PT Precautions: Seasonal asthma, denies other pertinent questions. Problem Noted Date Diagnosed Date Atopic dermatitis, unspecified type 05/07/2022 Elevated glucose 05/05/2022 Muscle spasm of back 08/26/2021 Pharyngoesophageal dysphagia 02/27/2020 Overview (02/27/2020): Added automatically from request for surgery [id number] Colon cancer screening 02/27/2020 Overview (02/27/2020): Added automatically from request for surgery [id number] LANRE (obstructive sleep apnea) 05/17/2019 Osteoarthritis of thumb, right 04/01/2019 Chronic thumb pain, right 04/01/2019 Class 3 severe obesity with body mass index (BMI) of 45.0 to 49.9 in adult, unspecified obesity type, unspecified whether serious comorbidity present 01/10/2019 Chronic pain of both shoulders 08/19/2018 Rotator cuff impingement syndrome of left should er 08/19/2018 Anxiety 10/14/2017 Depression 10/14/2017 Leiomyoma of uterus 10/14/2017 Low vitamin D level 10/14/2017 Environmental and seasonal allergies 10/14/2017 Mild intermittent asthma (HHS/HCC) 06/26/2017 Hypothyroidism 12/20/2015 Overview (07/12/2018): Overview: Hypothyroidism, unspecified type Attention deficit hyperactiv ity disorder (ADHD), combined type 12/20/2015 Overview (07/21/2018): Overview: ADHD (attention deficit hyperactivity disorder), combined type Essential hypertension 12/20/2015 Overview (07/21/2018): Overview: Essential hypertension Herpes simplex virus (HSV) infection 12/20/2015 Overview (07/21/2018): Overview: HSV (herpes simplex virus) infection Resolved Problems Problem Noted Date Diagnosed Date Resolved Date Sleep disorder 01/10/2019 05/05/2022 Vaginal infection 12/15/2017 05/05/2022 Asthma (HHS/HCC) 10/14/2017 05/05/2022 Neck pain 10/14/2017 05/05/2022 Recurrent major depressive disorder 12/20/2015 05/05/2022 Overview (07/21/2018): Overview: Major depressive disorder, recurrent, unspecified Immunizations Immunization Administration Dates Next Due Fluzone 6 Months+ Quad (0.5 mL Prefilled Syringe ) 01/11/2020 Influenza (Generic) 12/14/2016 PFIZER COVID-19 ([facility] CAP), MRNA, LNP-S, PF, 30 MCG/0.3 ML GAYLE-SUCROSE, IM 08/27/2021 Family History Medical History Relation Comments Asthma Daughter Cancer Father kidney cancer COPD Mother Depression Mother Diabetes Mother Hypertension Mother Kidney Disease Mother Arthritis Paternal Grandmother Breast Cancer Paternal Grandmother over 50 Cancer Paternal Uncle Asthma Son 1 Asthma Son 2 Relation Status Comments Daughter Father (Age 60) Mother Alive Paternal Grandmother Paternal Uncle Son 1 Son 2 Social History Tobacco Use Types Packs/Day Years Used Date Smoking Tobacco: Never Smokeless Tobacco: Never Tobacco Cessation:Counseling Given: Not Answered Alcohol Use Standard Drinks/Week Comments Yes 0 (1 standard drink = 0.6 oz pur e alcohol) rare AUDIT-C Answer Date Recorded Frequency of Alcohol Consumption Monthly or less 07/21/2018 Average Number of Drinks Not on file 019 Frequency of Binge Drinking Not on file 10/2018 PHQ-2 Answer Date Recorded Patient Health Questionnaire-2 Score 2 06/12/2023 Comments No Sex and Gender Information Value Date Recorded Sex Assigned at Female 04/05/2024 3:16 PM PLANNER SCHEDULER Legal Sex Female 6:37 PM CDT Gender Identity Female 05/15/2021 8:35 AM PLANNER SCHEDULER Sexual Orientation Straight 05/15/2021 8: 35 AM PLANNER SCHEDULER Last Filed Vital Signs Vital Sign Reading Time Taken Comments Blood Pressure 136/84 12/11/2023 9:01 AM CDT Pulse 85 12/11/2023 9:01 AM CDT Temperature 36.7 C (98.1 F) 06/12/2023 7:19 AM CDT Respiratory Rate 16 06/12/2023 7:19 AM CDT Oxygen Saturation 95% 12/11/2023 9:01 AM CDT Inhaled Oxygen Concentration - - Weight 144.2 kg (318 lb) 12/11/2023 9:01 AM CDT Height 167.6 cm (5' 6 ) 12/11/2023 9:01 AM CDT Body Mass Index 51.33 12/11/2023 9:01 AM CDT Plan of Treatment Health Maintenance Due Date Last Done Comments DTaP, Tdap and Td Vaccines (1 - Tdap) 1988 Hepatitis B Vaccines (1 of 3 - 19+ 3-dose series) 1988 Pneumococcal Vaccine: 50+ Years (1 of 2 - PCV) 1988 Zoster Vaccines (1 of 2) 08/26/2019 Annual Physical 03/23/2021 03/23/2020 COVID-19 Vaccine ( season) 2023 08/27/2021, 12/21/2020, 03/27/2020, Additional history exists PHQ-2 (Physician [place]) 03/16/2024 06/12/2023 Mammogram Screening 06/09/2025 06/10/2023, 02/12/2021, 01/11/2020, Additional history exists Colorectal Cancer Screening Colonoscopy (10 Years) 03/22/2030 03/22/2020 Hepatitis C Completed 02/22/2021 Meningococcal B Vaccine Aged Out No l onger eligible based on patient's age to complete this topic Meningococcal Vaccine Aged Out No manas kaelyn eligible based on patient's age to complete this topic RSV Immunizations Under 20 Months Aged Out No longer eligible based on patient's age to complete this topic Medical Devices Implanted Type Area Turn Out Worker Device Identifier Shelf Expiration Date Model / Serial / Lot Resolution Clip Implanted:Qty: 1 on 03/22/2020 by Arsenio Sanchez MD at [facility] [employer] [facility] 01/01/2023 / / [id number] Description:HEPATIC FLEXURE POLYP SITE Procedures Procedure Name Priority Date/Time Associated Diagnosis Comments MG SCREENING W NIKOLAI LALITHA DIGI Routine 06/10/2023 7:20 AM CDT Screening for breast cancer HEPATITIS C ANTIBODY Routine 02/22/2021 8:29 AM PLANNER SCHEDULER Need for hepatitis C screening test from Last 3 Months or Most Recently Relevant to Health Maintenance Results * MG SCREENING W NIKOLAI LALITHA DIGI (06/10/2023 7:20 AM CDT) Anatomical Region Laterality Modality Breast Bilateral Mammography 06/10/2023 9:40 AM CDT Narrative 06/10/2023 9:41 AM CDT Examination: Screening bilateral mammogram Exam Date/Time: 06/10/2023 7:07 AM Clinical history: No current complaints. Comparison: 02/12/2021 Technique: Digital screening mammography of both breasts was performed. Breast tomosynthesis acquisitions were obtained and reviewed. This study was read with the assistance of a computer-aided detection system. Tissue density: There are scattered areas of fibroglandular density. Findings: No suspicious masses, malignant appearing calcifications, skin thickening or other abnormalities are present. No significant change from the prior exam. IMPRESSION: No suspicious mammographic findings. Recommendation: 1. Routine Screening, Bilateral Assessment: ACR BI-RADS 2 - BENIGN FINDING(S) Ordered By: PEARL DASILVA Interpreted By: Germán Griffith, 06/10/2023 9:40 AM Pearl Dasilva DROP FORGER HELPER MAMMO Final Result * HEPATITIS C ANTIBODY (02/22/2021 8:29 AM PLANNER SCHEDULER) HEPATITIS C AB NON-REACTI VE NON-REACT KEM 02/22/2021 6:38 PM PLANNER SCHEDULER [facility] Comment: ANTIBODIES TO HCV NOT DETECTED. DOES NOT EXCLUDE THE POSSIBILITY OF EXPOSURE TO HCV. 02/22/2021 8:29 AM PLANNER SCHEDULER [facility] Final Result [facility] [address] [place] [address], [place] [phone] [id number] from Last 3 Months or Most Recently Relevant to Health Maintenance Insurance [employer] OPEN ACCESS [facility] Care Teams Buckle Sorter Relationship Specialty Start Date End Date Pearl Dasilva FNP [address] [id number] PCP - General NURSE PRACTITIONER 12/16/17
--- OUTSIDE RECORDS SUMMARY | 2024-07-31 19:02 | XMS_ITS | Clinical Summary ---
Author Organization [facility] [employer] Address [address] [place] [address] Care Team Providers Care Small Business Consultant Name Role Phone Carlos Gutierrez MD Unavailable [phone] Chelsie Arellano MD Primary Care Provider [phone] Source Comments [facility],non-owned Affiliates and Associated Physician Practices is amultiple site organization consisting of ambulatory clinics and hospital sitesin [place], [place], [place] and [place]. This disclosure is being madepursuant to the Care Everywhere program and may not contain all information available regarding this patient. Last updated 17.[facility] Allergies Active Allergy Reactions Criticality Noted Date Comments Penicillins Itching 01/20/2011 YEAST INFECTIONS Medications * Be aware that medications may not be up to date on this document. Alwaysverify current medications with the patient. naphazoline (NAPHCON) 0.1 % ophthalmic solution 1 Drop 2 times daily as needed for Itchy Eyes. 15 mL 1 11/03/2012 Active meclizine (ANTIVERT) 25 MG tabletIndicatio ns:Dizziness Take 1 Tab by mouth 3 times daily as needed. 30 Tab 0 08/01/2014 Active valACYclovir (VALTREX) 500 MG tablet Take 1 Tab by mouth once daily 30 Tab 11 11/16/2014 Active ibuprofen (MOTRIN) 800 MG tablet Take 800 mg by mouth every 6 hours as needed for Pain Active cyclobenzaprine (FLEXERIL) 5 MG tablet Take 5 mg by mouth 3 times daily as needed Active levothyroxine (SYNTHROID) 175 MCG tablet Take 1 Tab by mouth once daily 90 Tab 1 04/16/2015 Active vitamin D, ergocalciferol, (DRISDOL) 25677 UNITS capsule Take 1 Cap by mouth every 7 days 12 Cap 1 04/16/2015 Active cetirizine (ZYRTEC) 10 MG tablet Take 1 Tab by mouth once daily 30 Tab 11 04/17/2015 Active fluticasone propionate (FLONASE) 50 MCG/ACT nasal spray [place] 2 Sprays into each nostril once daily 16 g 6 04/18/2015 Active azithromycin (ZITHROMAX) 250 MG tablet Take 2 tabs on day 1, then 1 tab daily days 2 - 5 6 Tab 0 08/09/2015 Active albuterol HFA (PROAIR HFA) 108 (90 BASE) MCG/ACT inhaler Inhale 2 Puffs by mouth every 4 hours as needed 1 Inhaler 6 08/21/2015 Active amLODIPine (NORVASC) 10 MG tablet TAKE 1 TABLET BY MOUTH DAILY 90 Tab 0 10/18/2015 Active DULoxetine (Cymbalta) 20 MG capsule Take 1 (one) capsule by mouth once daily Active traZODone (Desyrel) 50 MG tablet Take 1 (one) tablet by mouth at bedtime Active Active Problems Patient Care Coordination No te Formatting of this note is d iffervania from the original. ACTION PLAN Kelli Spencer [address] [address] (home) [phone] (work) [email or web address] Do they have My Chart: yes HEALTH SUPPORTS Name Relationship Lgl Grd Work Phone Home Phone Mobile Phone 1. MICHAEL DONATO Mother [phone] 2. MICHAEL DONATO Mother [phone] 3. U,U Father MY CARE TEAM Primary Care Physician: Dr. Auguste Crts: Dana Tejeda, ELICIA MEDICATIONS Current Outpatient Prescriptions on File Prior to Visit Medication Sig Dispense Refill levothyroxine (SYNTHROID) 125 MCG tablet Take 1 Tab by mouth once daily. 30 Tab 5 vitamin D, ergocalciferol, (DRISDOL) 49997 UNITS capsule Take 1 Cap by mouth every 7 days. 4 Cap 3 cetirizine-pseudoephedrine 12hr (ZYRTEC-D ALLERGY & CONGESTION) 5-120 MG tablet Take 1 Tab by mouth 2 times daily. 60 Tab 1 mometasone (NASONEX) 50 MCG/ACT nasal spray [place] 2 Sprays into each nostril once daily. 1 Inhaler 3 ALBUTEROL IN Inhale by mouth as needed. clotrimazole (LOTRIMIN AF) 1 % cream Apply to affected area 2 times daily. 30 g 0 meclizine (ANTIVERT) 25 MG tablet Take 1 Tab by mouth 3 times daily as needed. 90 Tab 0 ibuprofen (MOTRIN) 800 MG tablet Take 1 Tab by mouth 3 times daily as needed for Pain. 30 Tab 0 cyclobenzaprine (FLEXERIL) 5 MG TABS tablet Take 1 Tab by mouth nightly as needed. 20 Tab 0 CURRENT HEALTH ISSUES Patient Active Problem List Diagnosis Allergic rhinitis Hypothyroidism Morbid obesity Tinea pedis Urinary tract infection Vitamin d deficiency Problem: Weight Current State: 300 lbs Goal: Weight loss of 1-2 lbs/week; specific goal not specified yet Accomplishment: Member of [facility] Barriers: Busy work and school schedule Plan: Begin going to [facility] 4 days/week Next Action: Follow up with pt in 2 weeks Problem: Diet Current State: Frequently eats at fast food restaurants; limited meals prepared at home Goal: Limit fast food to 1 day/week; pack lunch for school and work Accomplishment: No longer drinks carbonated beverages Barriers: Busy work and school schedule; convenience of fast food/cafeteria Plan: Choose healthy foods options; follow recommended portion sizes Next Action: Follow up with pt in 2 weeks My fears about my health are: weight gain and its effects PLANS The change I want to make is: weight loss My Goal for this month is: lose 1-2 lbs/week The steps I will take to reach my goal are: 1. Go to [facility] 4 days/week; follow exercise regimen received from [facility] 2. Prepare owns meals at home and pack lunch for school and work; limit fast food to 1 day/week (choose healthy options) 3. Eat 3 healthy meals and snacks; avoid late night eating The things that will make it hard for me to reach my goal are: 1. Work and school schedules 2. Friends/family influences The way I can overcome those things that get in the way: 1. Remember accomplishments 2. Support from family 3. Support from career counselor My confidence level that I can reach my goal: very confident (on a scale of 1- 10) Call Crts if: You have any questions or concerns with your current health; or for any new problems that arise in the future. Also call if you need assistance navigating through the healthcare system or communicating between physicians. Thank you for coming to the initial visit. Dana Tejeda RN [phone] ext [phone] Problem Noted Date Diagnosed Date Primary osteoarthritis of right knee 04/30/2015 Degenerative tear of meniscus of right knee 04/16 Essential hypertension 12/29/2014 BMI 45.0-49.9, adult 11/06/2014 Insomnia 11/06/2014 Hypertension 08/01/2014 Major depression 08/01/2014 Rash and other nonspecific skin eruption 015 HSV-2 seropositive 10/28/2013 Asthma 10/26/2013 BMI 40.0-44.9, adult 10/26/2013 Depression 11/03/2012 Vitamin D deficiency 07/07/2012 Urinary tract infection 07/02/2012 Tinea pedis 11/05/2011 Allergic rhinitis 10/28/2011 Hypothyroidism 10/28/2011 Morbid obesity 10/28/2011 Resolved Problems Problem Noted Date Diagnosed Date Resolved Date Strep pharyngitis 08/01/2015 08/15/2015 Pain in limb 12/29/2014 04/03/2015 Vaginitis 11/06/2014 04/03/2015 OME (otitis media with effusion) 08/01/2014 04/03/2015 Trichomonas infection 03/23/20132015 Chest pain 03/15/2013 04/03/2015 Grief 11/03/2012 04/03/2015 Immunizations Immunization Administration Dates Next Due INFLUENZA VACCINE, QUADR. (F LUZONE; FLULAVAL; FLUARIX; AFLURIA QUADRIVALENT; 6MO+), 0.5 ML (IIV4) 12/29/2014 PNEUMOCOCCAL PPSV23 03/03/2013 TDAP (7yrs+) 02/18/2013 Family History Medical History Relation Name Comments Cancer Maternal Grandmother Diabetes Mother Hypertension Mother Seizures Mother Cancer Paternal Grandmother breast Relation Name Status Comments Brother 1 Alive Brother 2 Alive Brother 3 Alive Father Maternal Grandfather Maternal Grandmother Mother Alive Paternal Grandfather Paternal Grandmother Sister Alive Social History Tobacco Use Types Packs/Day Years Used Date Smoking Tobacco: Never Smokeless Tobacco: Never Alcohol Use Standard Drinks/Week Comments Yes 0 (1 standard drink = 0.6 oz pur e alcohol) socially Comments No Sex and Gender Information Value Date Recorded Sex Assigned at Not on file Legal Sex Female 1:47 PM LABORER 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 Gender Identity Not on file Sexual Orientation Not on file Last Filed Vital Signs Vital Sign Reading Time Taken Comments Blood Pressure 142/88 12/18/2023 10:52 AM CDT Pulse 71 12/18/2023 10:52 AM CDT Temperature 36.2 C (97.2 F) 12/18/2023 10:52 AM CDT Respiratory Rate 21 03/08/2015 12:57 AM LABORER SYRUP MACHINE Oxygen Saturation 94% 12/18/2023 10:52 AM CDT Inhaled Oxygen Concentration - - Weight 142.4 kg (314 lb) 01/04/2024 12:43 PM CDT Height 167.6 cm (5' 6 ) 01/04/2024 12:43 PM CDT Body Mass Index 50.68 01/04/2024 12:43 PM CDT Plan of Treatment Health Maintenance Due Date Last Done Comments COLOGUARD (AGES 45-75) - COLON CA SCREENING 1969 COLON MONITORING 1969 COLONOSCOPY - COLON CA SCREENING 1969 CT COLONOGRAPHY - COLON CA SCREENING 1969 Colorectal Cancer Screening 1969 FIT - COLON CA SCREENING 1969 FLEX SIG - COLON CA SCREENING 1969 HEPATITIS B VACCINE (1 of 3 - 19+ 3-dose series) 1988 PNEUMOCOCCAL VACCINE 50+ (2 of 2 - PCV) 03/03/2014 03/03/2013 ZOSTER VACCINE (1 of 2) 08/26/2019 LIPID TESTING 04/12/2020 04/12/2015, 10/14, 07/02/2012, Additional history exists DTAP/TDAP/TD VACCINES (2 - Td or Tdap) 02/18/2023 02/18/2013 COVID-19 VACCINE (2 - season) 2023 08/27/2021 SCREENING FOR DIABETES 12/18/2023 6, 11/06/2014, 08/01/2014, Additional history exists DEPRESSION SCREENING 03/16/2024 INFLUENZA VACCINE (Season Ended) 2024 01/11/2020, 12/14/2016, 12/29/2014 MAMMOGRAM 06/09/2025 06/10/2023, 05/15, 02/12/2021, Additional history exists HIV SCREENING Completed 10/26/2013, 07/02/2012 HEPATITIS C SCREENING Completed 02/22/2021, 013 HIB VACCINE Aged Out No longer eligi ble based on patient's age to complete this topic HPV VACCINE Aged Out No longer eligi ble based on patient's age to complete this topic MENINGOCOCCAL (Group B) VACCINE SHARED DECISION-MAKING Aged Out No longer eligible based on patient's age to complete this topic MENINGOCOCCAL GROUPS A/C/Y/W VACCINE Aged Out No longer eligible based on patient's age to complete this topic Goals Goal Patient Goal Type Associated Problems Recent Progress Patient-Stated? Author Blood Pressure < 130/80 Blood Pressure 142/88(2023 10:52 AM CDT) No Dana Urena RN Exercise 3X per week (30 min per time) Exercise No Dana Urena RN Plan meals Lifestyle No Dana Urena RN Weight < 200 lb (90.719 kg) Weight 142.4 kg (314 lb)( 12:43 PM CDT) No Dana Urena RN Procedures Procedure Name Priority Date/Time Associated Diagnosis Comments COMPREHENSIVE METABOLIC PANEL Routine 04/12/2015 9:34 AM LABORER SYRUP MACHINE Essential hypertension LIPID PROFILE W TCHOL/HDL Routine 04/12/2015 9:34 AM LABORER SYRUP MACHINE Essential hypertension MAMMO BILAT SCREENING Routine 01/18/2015 9:54 AM LABORER SYRUP MACHINE Visit for screening mammogram HIV-1 HIV-2 ANTIBODY Routine 10/26/2013 10:22 AM CDT Screening for venereal disease HEPATITIS B + C PANEL Routine 07/02/2012 11:14 AM CDT Well woman exam with routine gynecological exam from Last 3 Months or Most Recently Relevant to Health Maintenance Results * LIPID PROFILE W TCHOL/HDL (PO REF LAB) (04/12/2015 9:34 AM LABORER SYRUP MACHINE) Cholesterol 135 100 - 199 mg/dL [facility] ACCOUNT BILL Triglycerides 87 0 - 149 mg/dL [facility] ACCOUNT BILL HDL Cholesterol 54 >39 mg/dL [facility] ACCOUNT BILL Comment: According to ATP-III Guidelines, HDL-C >59 mg/dL is considered a negative risk factor for CHD. VLDL Calculated 17 5 - 40 mg/dL [facility] ACCOUNT BILL LDL Calculated 64 0 - 99 mg/dL [facility] ACCOUNT BILL Comment NOT NEEDED [facility] ACCOUNT BILL Comment:Ancillary determined the test is not needed Cholesterol/HDL Ratio 2.5 0.0 - 4.4 ratio units [facility] ACCOUNT BILL Comment: T. Chol/HDL Ratio Men Women 1/2 Avg.Risk 3.4 3.3 Avg.Risk 5.0 4.4 2X Avg.Risk 9.6 7.1 3X Avg.Risk 23.4 11.0 Blood specimen (specimen) BLOOD SPECIMEN / Unknown 04/12/2015 9:34 AM LABORER SYRUP MACHINE 04/12/2015 12:48 PM LABORER SYRUP MACHINE Narrative Resulting Agency Comment [facility] [address] [facility] [id number] us Ginna Auguste MD LAB - CHEMISTRY ORDERABLES Final Result [facility] ACCOUNT BILL [address] [place] [address] * COMPREHENSIVE METABOLIC PANEL (04/12/2015 9:34 AM LABORER SYRUP MACHINE) Glucose 76 65 - 99 mg/dL [facility] ACCOUNT BILL BUN 8 6 - 24 mg/dL [facility] ACCOUNT BILL Creatinine 0.76 0.57 - 1.00 mg/dL [facility] ACCOUNT BILL eGFR by MDRD 95 >59 mL/min/1.7 3 [facility] ACCOUNT BILL eGFR by MDRD 110 >59 mL/min/1.7 3 [facility] ACCOUNT BILL BUN/Creatinine Ratio 11 9 - 23 [facility] ACCOUNT BILL Sodium 141 134 - 144 mmol/L [facility] ACCOUNT BILL Potassium 4.4 3.5 - 5.2 mmol/L [facility] ACCOUNT BILL Chloride 103 97 - 108 mmol/L [facility] ACCOUNT BILL CO2 24 18 - 29 mmol/L [facility] ACCOUNT BILL Calcium 9.0 8.7 - 10.2 mg/dL [facility] ACCOUNT BILL Protein Total 6.8 6.0 - 8.5 g/dL [facility] ACCOUNT BILL Albumin 4.1 3.5 - 5.5 g/dL [facility] ACCOUNT BILL Globulin Total 2.7 1.5 - 4.5 g/dL [facility] ACCOUNT BILL Albumin/Globulin Ratio 1.5 1.1 - 2.5 [facility] ACCOUNT BILL Bilirubin Total 0.5 0.0 - 1.2 mg/dL [facility] ACCOUNT BILL Alkaline Phosphatase 67 39 - 117 IU/L [facility] ACCOUNT BILL AST 15 0 - 40 IU/L [facility] ACCOUNT BILL ALT 8 0 - 32 IU/L [facility] ACCOUNT BILL Blood specimen (specimen) BLOOD SPECIMEN / Unknown 04/12/2015 9:34 AM LABORER SYRUP MACHINE 04/12/2015 12:48 PM LABORER SYRUP MACHINE Narrative Resulting Agency Comment [facility] [address] [facility] [id number] Ginna Auguste MD LAB - CHEMISTRY ORDERABLES Final Result [facility] ACCOUNT BILL [address] [place] [address] * MAMMO SCREENING DIGITAL IMAGE BILAT [id number] (01/18/2015 9:54 AM LABORER SYRUP MACHINE) Anatomical Region Laterality Modality Breast Bilateral Mammography 01/18/2015 10:1 9 AM LABORER SYRUP MACHINE Narrative 01/18/2015 11:13 AM LABORER SYRUP MACHINE DIGITAL BILATERAL SCREENING MAMMOGRAMS WITH CAD CORRELATION DATE: 01/18/2015 PREVIOUS EXAM DATE: 01/10/2014, 12/07/2012, 08/13/2010 INDICATION: Screening. TECHNIQUE: Bilateral craniocaudad (CC) and mediolateral oblique (MLO) views. The study was interpreted with the aid of CAD. TECHNOLOGIST: Yvette Coleman, RT(R)(M). TISSUE DENSITY: Scattered fibroglandular elements. FINDINGS: There is no discrete abnormality. There is no significant mass nor microcalcification. ASSESSMENT: BI-RADS 1: NEGATIVE. RECOMMENDATIONS: Followup one year. The above findings should be correlated with physical examination. A relatively nonspecific study should not preclude additional evaluation if suspicious findings are present clinically. An [employer] Certified Facility. [facility] utilize [employer] as a reminder system to notify patients of their next recommended mammograms. Edited by Yvette Palmer on 01/18/2015 10:33 AM us Ginna Auguste MD MAMMO ORDERABLES Final Res ult * HIV-1 HIV-2 ANTIBODY (10/26/2013 10:22 AM CDT) HIV-1 Antibody O.D. Ratio <1.00 <1.00 [facility] ACCOUNT BILL Comment:Index Value: Specime n reactivity relative to the negative cutoff. HIV-1/HIV-2 Non Reactive Non Reactive [facility] ACCOUNT BILL Blood specimen (specimen) BLOOD SPECIMEN / Unknown 10/26/2013 10:22 AM CDT 10/26/2013 12:59 PM CDT Narrative Resulting Agency Comment [facility] [address] [id number] Ginna Auguste MD LAB - CHEMISTRY ORDERABLES Final Result Performing Organization Address City/[facility]/ZIP Co de Phone Number [facility] ACCOUNT BILL [address] [place] [address] * HEPATITIS B + C PANEL (PO REF LAB) (07/02/2012 11:14 AM CDT) Hepatitis B Virus Surface Antigen Negative Negative [facility] ACCOUNT BILL Hepatitis Be Antigen Negative Negative [facility] ACCOUNT BILL Hepatitis B Core Virus Antibody IgM Negative Negative [facility] ACCOUNT BILL Hepatitis B Core Virus Antibody Total Negative Negative [facility] ACCOUNT BILL Hepatitis Be Antibody Negative Negative [facility] ACCOUNT BILL Hepatitis B Virus Surface Antibody Quantitative 2.27 Index Value [facility] ACCOUNT BILL Comment: Status of Immunity Anti-HBs Level Inconsistent with Immunity 0.00 - 0.99 Consistent with Immunity >0.99 . An Index Value of 1.00 is equivalent to 10 mIU/mL. However the magnitude of the Index Value is not indicative of the total amount of antibody present. Hepatitis C Antibody 0.2 0.0 - 0.9 s/co ratio [facility] ACCOUNT BILL BLOOD SPECIMEN / Unknown 07/02/2012 11:14 AM CDT 07/02/2012 12:56 PM CDT Narrative Resulting Agency Comment [facility] [address] [id number] Ginna Auguste MD LAB - SEROLOGY ORDERABLES Final Result Performing Organization Address City/[facility]/ZIP Co de Phone Number [facility] ACCOUNT BILL [address] [place] [address] from Last 3 Months or Most Recently Relevant to Health Maintenance Insurance [employer]IC Advance Directives * FULL RESUSCITATION (Latest Code Status on File) Date Activated Date Inactivated Comments 03/02/2013 12:47 PM 03/06/2013 3:29 PM * FULL RESUSCITATION Date Activated Date Inactivated Comments 01/29/2011 7:43 PM 01/31/2011 2:20 AM Care Teams Small Business Consultant Relationship Specialty Start Date End Date Chelsie Arellano MD [facility] [place] [address] [place] [address] PCP - General 03/22/19 Carlos Gutierrez MD Orthopedic Surgery 03/20/15
--- OUTSIDE RECORDS SUMMARY | 2024-07-31 19:02 | XMS_ITS | Encounter Summary ---
Author Organization [facility] Health Address [address] [place] [address] Care Team Providers Care Legal Support Analyst Name Role Phone Ginna Auguste MD Primary Care Provider [phone] Arpita Benjamin RN Unavailable [phone] Carlos Gutierrez MD Unavailable [phone] Chelsie Arellano MD Primary Care Provider [phone] Encounter Details Date Type Department Care Team (Late st Contact Info) Description 02/28/2013 [facility] Outpatient Visit EXTERNAL [place] [address] [place] [place] [id number] Social History Tobacco Use Types Packs/Day Years Used Date Smoking Tobacco: Never Smokeless Tobacco: Never Alcohol Use Standard Drinks/Week Comments Yes 0 (1 standard drink = 0.6 oz pur e alcohol) socially Comments No Sex and Gender Information Value Date Recorded Sex Assigned at Not on file Legal Sex Female 1:47 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
[2024-07-31 19:05] VITALS: BP 145/77; PULSE 88; RESP 18; TEMP 36.4; O2SAT 98
--- OUTSIDE RECORDS SUMMARY | 2024-07-31 19:05 | XMS_ITS | Referral Summary ---
Author Organization [facility] Building [address] [place] [id number] Care Team Providers Care Boot Turner Name Role Phone Bonifacio Lin MD Primary Care Provide r Allergies Active Allergy Reactions Criticality Noted Date Comments Penicillins Hives,Rash Reaction: Hives, Skin Rash, Medications sertraline (ZOLOFT) 100 mg tablet take 1 tablet by oral route every day 90 3 6 Active methylphenidate ER (METADATE ER) 20 mg CR tablet take 1 tablet by oral route every day 60 0 6 Active levothyroxine (SYNTHROID, LEVOTHROID) 75 mcg tablet Take 1 tablet (75 mcg total) by mouth daily. 90 tablet 3 8 Active cyclobenzaprine (FLEXERIL) 10 mg tablet Take 1 tablet (10 mg total) by mouth every 8 (eight) hours as needed for muscle spasms. 12 tablet 8 Active valACYclovir (VALTREX) 500 mg tablet Take 1 tablet (500 mg total) by mouth 2 (two) times a day. 6 tablet 11 8 Active albuterol HFA (PROAIR HFA) 90 mcg/actuation inhaler Inhale 2 puffs every 4 (four) hours as needed for wheezing or shortness of breath. 8.5 g 8 Active Active Problems Problem Noted Date Diagnosed Date Mild intermittent asthma 06/26/2017 Essential hypertension 12/20/2015 Overview (06/18/2016): Essential hypertension Recurrent major depressive disorder 12/20/2015 Overview (06/18/2016): Major depressive disorder, recurrent, unspecified Hypothyroidism 12/20/2015 Overview (06/20/2016): Hypothyroidism, unspecified type Herpes simplex virus (HSV) infection 12/20/2015 Overview (06/20/2016): HSV (herpes simplex virus) infection Attention deficit hyperactiv ity disorder (ADHD), combined type 12/20/2015 Overview (06/20/2016): ADHD (attention deficit hyperactivity disorder), combined type Resolved Problems Problem Noted Date Diagnosed Date Resolved Date Bacterial vaginosis 12/20/2015 02/25/20 17 Overview (06/18/2016): Bacterial vaginosis Immunizations Immunization Administration Dates Next Due Influenza, Unspecified 12/14/2016 Social History Tobacco Use Types Packs/Day Years Used Date Smoking Tobacco: Never Smokeless Tobacco: Never Alcohol Use Standard Drinks/Week Comments No 0 (1 standard drink = 0.6 oz pur e alcohol) Personal Safety Answer Date Recorded Getting School Help Needed Not on file 05/30 Comments Unknown Sex and Gender Information Value Date Recorded Sex Assigned at Not on file Legal Sex 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 Gender Identity Not on file Sexual Orientation Not on file Last Filed Vital Signs Vital Sign Reading Time Taken Comments Blood Pressure 160/98 06/26/2017 9:08 AM CDT Pulse 74 06/26/2017 9:08 AM CDT Temperature 36.7 C (98 F) 05/01/2017 12:57 PM HEALTHCARE RISK CONTROL CONSULTANT Respiratory Rate 16 04/30/2017 8:04 AM HEALTHCARE RISK CONTROL CONSULTANT Oxygen Saturation 97% 04/30/2017 8:04 AM HEALTHCARE RISK CONTROL CONSULTANT Inhaled Oxygen Concentration - - Weight 129.3 kg (285 lb) 06/26/2017 9:08 AM CDT Height 167.6 cm (5' 6 ) 06/26/2017 9:08 AM CDT Body Mass Index 46 06/26/2017 9:08 AM CDT Plan of Treatment Not on file Insurance [employer] Care Teams Boot Turner Relationship Specialty [place] [id number] [address] PCP - General Family Medicine 02/24/17
--- OUTSIDE RECORDS SUMMARY | 2024-07-31 19:05 | XMS_ITS | Clinical Summary ---
Author Organization [facility] Physician Office Building [address] [place] [id number] Care Team Providers Care Local [employer] Hazmat Driver Name Role Phone Bonifacio Lin MD Primary [...] Administration Dates Next Due Influenza, Unspecified 12/14/2016 Surgical History Surgery Date Site/Laterality Comments HYSTERECTOMY SECTION TUBAL LIGATION CHOLECYSTECTOMY 02/13/2013 - 03/15/2013 Gastric Sleeve LIPOMA RESECTION Medical History Medical History Date Comments Asthma Vertigo Depression Thyroid disease Family History Medical History Relation Name Comments Other Father stomach?; Diabetes type II Mother Diabetes me llitus type 2; ADD / ADHD Other Family history of ADD/ADHD; Breast cancer Paternal Grandmother Cancer , breast; Relation Name Status Comments Father Mother Other Paternal Grandmother Social History Tobacco Use Types Packs/Day Years [...] on file 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 Gender Identity Not on file Sexual Orientation Not on file Obstetrics History Last Filed Vital Signs Vital Sign Reading Time Taken Comments Blood Pressure 160/98 06/26/2017 9:08 AM CDT Pulse 74 06/26/2017 9:08 AM CDT Temperature 36.7 C (98 F) 05/01/2017 12:57 PM FINDING FASTENER Respiratory Rate 16 04/30/2017 8:04 AM FINDING FASTENER Oxygen Saturation 97% 04/30/2017 8:04 AM FINDING FASTENER Inhaled Oxygen Concentration - - Weight 129.3 kg (285 lb) 06/26/2017 9:08 AM CDT Height 167.6 cm (5' 6 ) 06/26/2017 9:08 AM CDT Body Mass Index 46 06/26/2017 9:08 AM CDT Plan of Treatment Not on file Insurance Care Teams Local Company Hazmat Driver Relationship Specialty [place] [id number] [address] PCP - General Family Medicine 02/24/17
== END 2024-07-31 19:20 | disposition home or self-care (01) ==
PROVIDERS: Emergency Provider Nurse Practitioner Family; PCP Nurse Practitioner Family
DX: H10.33 Unspecified acute conjunctivitis, bilateral (principal); E03.9 Hypothyroidism, unspecified; E66.9 Obesity, unspecified; Z68.42 Body mass index [BMI] 45.0-49.9, adult; J45.909 Unspecified asthma, uncomplicated; F32.A Depression, unspecified
CPT/HCPCS: 99213; G0463

== ENCOUNTER 2025-03-13 08:14 | Emergency (ER) | payer OTHER, SELFPAY ==
--- NOTE | 2025-03-13 08:17 | ED.URI ---
HPI - URI/Sore Throat General Chief Complaint: Upper Respiratory Infection Stated Complaint: URI Symptoms Time Seen by Provider: 03/13/25 08:33 Source: patient, RN notes reviewed and old records reviewed Mode of arrival: ambulatory Limitations: no limitations History of Present Illness HPI Narrative: 54-year-old female presents to the [facility] with not feeling well since Thursday, 5 days reports a cough. Developed a sore throat on and either Thursday or Thursday and started feeling worse. Has tried [id number] products Treatments prior to arrival: cold medicine Related Data Home Medications ?Medication ?Instructions ?Recorded ?Confirmed ?Last Taken ?Type amlodipine 10 mg tablet 10 mg PO DAILY 10/04/22 11/09/23 Unknown History bupropion HCl 300 mg 24 hr tablet, 300 mg PO DAILY 10/04/22 11/09/23 Unknown History extended release duloxetine 30 mg capsule,delayed 30 mg PO DAILY 10/04/22 11/09/23 Unknown History release levothyroxine 150 mcg tablet 150 mcg PO DAILY 05/08/23 11/09/23 Unknown History duloxetine 60 mg capsule,delayed 60 mg PO DAILY 11/09/23 11/09/23 Unknown History release albuterol 90 mcg-budesonide 80 inh inhalation 03/13/25 Unknown History mcg/actuation HFA aerosol inhaler (Airsupra) levothyroxine 200 mcg tablet mcg 03/13/25 Unknown History methylphenidate HCl 54 mg mg PO 03/13/25 Unknown History tablet,extended release 24 hr Allergies Allergy/AdvReac Type Severity Reaction Status Date / Time Penicillins Allergy Mild Rash Verified 03/13/25 08:45 Review of Systems Review of Systems: All systems reviewed & are unremarkable except as noted in HPI and below Constitutional: Constitutional: Reports no additional constitutional complaints ENT: Reports as per HPI and Reports sore throat Cardiovascular: Cardiovascular: Reports no additional cardiovascular complaints, Denies chest pain and Denies dyspnea Respiratory: Respiratory: Reports as per HPI, Denies chest congestion, Reports cough and Denies dyspnea Musculoskeletal: Musculoskeletal: Reports no additional musculoskeletal complaints Integumentary/Breasts: Skin/Breast: Reports system reviewed and no additional complaints, except as docu PMFSH Past Medical History Medical History Cholecystectomy planned Lipoma Hypothyroidism Obesity Depression Environmental allergies Asthma Surgical History Surgical History History of hysterectomy History of tubal ligation Family History Family History Father Cancer Mother End stage renal disease Social History Social History Smoking status: Never smoker Alcohol intake: never Substance use: never Living arrangements: with family Gender identity (if verbalized by the patient): Female Sexual Orientation (if Verbalized by the Patient): Straight or Heterosexual Comments At the time of my signature, I reviewed and agree with the nursing past medical, surgical, social, and family history. There is no relevant family history pertinent to the patient complaint. Exam Const: General: cooperative, no acute distress, well developed, alert, tired appearing, uncomfortable and well nourished Nutritional Appearance: well nourished and obese Orientation/consciousness: patient oriented x3 Limitations: no limitations HENMT: Head: normal to inspection Ears: hearing grossly normal bilaterally, external ears normal, TM's normal bilaterally, EAC's normal, mastoids normal and no periauricular adenopathy Mouth: Yes Normal oral and palatal mucosa present, Yes lip normal, Yes tongue normal and Yes moist mucous membranes Throat: posterior oropharynx normal, uvula midline and no uvular edema Eyes: General: appearance normal, both eyes and all related structures Alignment and Position: alignment normal Neck: Neck: normal visual inspection, full ROM, no lymphadenopathy and no meningeal signs Chest: Chest palpation & inspection: normal inspection of the chest Resp: Effort & Inspection: normal respiratory effort and able to speak in complete sentences Auscultation: clear to auscultation bilaterally, no crackles, no rales, no rhonchi and no wheezes Cardio: Rate: regular rate Skin: General skin exam: normal color and no rashes or lesions noted Neuro: General: patient oriented x3, gait normal, moves all extremities and no meningeal signs Cognition (Neuro): normal cognition Speech: normal speech Gait exam (Neuro): Normal gait present Extrem: General: normal to inspection, full ROM, capillary refill normal and normal gait Psych: Appearance: grossly normal and well kempt Mental Status: mental status grossly normal Speech and movement: Normal speech and movement present and Clear speech present Affect: normal affect Attitude: cooperative Course Course Level of Care: Express Care Visit Vital Signs Vital signs: Vital Signs Temperature 97.9 F 03/13/25 08:29 Pulse Rate 81 03/13/25 08:29 Respiratory Rate 16 03/13/25 08:29 Blood Pressure 140/77 03/13/25 08:29 Pulse Oximetry 98 03/13/25 08:29 Temperature 97.9 F 03/13/25 08:29 Pulse Rate 81 03/13/25 08:29 Respiratory Rate 16 03/13/25 08:29 Blood Pressure 140/77 03/13/25 08:29 Pulse Oximetry 98 03/13/25 08:29 reviewed MDM MDM Narrative Medical decision making narrative: Patient sitting in exam room. Patient is nontoxic, vitals stable. Patient presents with sore throat for 1-2 days. URI symptoms for approximately 4-5 days. Patient is negative for flu and COVID, positive strep. Due to allergy for penicillin will cover with azithromycin. Patient is appropriate for outpatient treatment and close follow-up Discharge instructions reviewed with patient, as well as provided in writing per nursing staff. The instructions also include specific and strict return/GO TO THE ER as well as f/u information. All questions have been answered, and the patient deny any further questions with discharge and discharge plan. Some parts of this dictation were generated by voice recognition software and may contain typographical and/or grammatical inaccuracies. Differential Diagnosis Differential Diagnosis: Differential diagnostic considerations for upper respiratory infection include upper respiratory infection, croup, otitis media, sinusitis, viral infection, bronchitis, influenza, pharyngitis, strep, uvulitis.? Lab Data MDM Lab Attestation statement: I personally reviewed the patient's lab results. Labs: Lab Results 03/13/25 03/13/25 Range/Units 08:34 08:39 POC Influenza A Ag Negative (Negative) POC Influenza B Ag Negative (Negative) POC SARS CoV-2 Ag Negative (Negative) POC Grp A Strep Screen Positive (Negative) Reviewed Discharge Plan Discharge Clinical Impression: Strep pharyngitis Patient Disposition: Home Condition: Stable Instructions: Antibiotic Form, Strep Throat (DC) Additional Instructions: After 24-48 hours on antibiotics, Throw the toothbrush away, start using a new one. Please be sure to wash bed linens especially pillow cases. Repeat once you finish the antibiotics. Do not share drinks. Take Motrin alternating with Tylenol for pain and fever alternating every 4 hours. Increase fluids, avoid caffeine. Give plenty of water, juice, Gatorade, Pedialyte, ice pops in Jell-O Follow up with Primary provider if not getting better this week For new or worsening symptoms go directly to the emergency room Patient Language: St Helen[place] Prescriptions: New azithromycin 500 mg tablet 500 mg PO DAILY 5 Days Qty: 5 0RF No Action amlodipine 10 mg tablet 10 mg PO DAILY bupropion HCl 300 mg tablet extended release 24 hr 300 mg PO DAILY duloxetine 30 mg capsule,delayed release(DR/EC) 30 mg PO DAILY duloxetine 60 mg capsule,delayed release(DR/EC) 60 mg PO DAILY levothyroxine 150 mcg tablet 150 mcg PO DAILY methylphenidate HCl 54 mg tablet extended release 24hr PO levothyroxine 200 mcg tablet Airsupra 90-80 mcg/actuation HFA aerosol inhaler INHALATION Follow-up/Referrals: BROWN,RANDA KANG [Primary Care Provider] - 1 Week Clinical Impression: Strep pharyngitis Stand Alone Forms: Work/School Release IP Time of Disposition: 08:42
[2025-03-13 08:29] VITALS: BP 140/77; PULSE 81; RESP 16; TEMP 36.6; O2SAT 98
[2025-03-13 08:39] LABS: EDSTREPNEGPOS1 Positive (Negative)
[2025-03-13 08:40] LABS: EDCOVIDSCREEN Negative (Negative); EDINFLUASCREEN Negative (Negative); EDINFLUBSCREEN Negative (Negative)
== END 2025-03-13 08:49 | disposition home or self-care (01) ==
PROVIDERS: Emergency Provider Nurse Practitioner; PCP Nurse Practitioner Family
DX: J02.0 Streptococcal pharyngitis (principal); Z20.822 Contact with and (suspected) exposure to COVID-19; E03.9 Hypothyroidism, unspecified; E66.9 Obesity, unspecified; J45.909 Unspecified asthma, uncomplicated
CPT/HCPCS: 87426; 87804; 87880; 99213; G0463